=== PATIENT | male | born 1960 | race Caucasian/White ===

== ENCOUNTER → 2017-04-06 | Outpatient (CLI) | payer MEDICARE | END | disposition home or self-care (01) | LOC: LABWHC1 09:26 | PROVIDERS: ATTEND Urology | DX: E29.1 Testicular hypofunction (principal) | CPT/HCPCS: 36415; 84403 ==

== ENCOUNTER → 2018-08-08 | Outpatient (CLI) | payer MEDICARE | END | disposition home or self-care (01) | LOC: LABWHC1 09:05 | PROVIDERS: ATTEND Internal Medicine Cardiovascular Disease | DX: E11.9 Type 2 diabetes mellitus without complications (principal) | CPT/HCPCS: 36415; 83704 ==

== ENCOUNTER → 2019-02-01 | Outpatient (CLI) | payer MEDICARE | END | disposition home or self-care (01) | LOC: LABWHC1 08:23 | PROVIDERS: ATTEND Internal Medicine Cardiovascular Disease | DX: E78.2 Mixed hyperlipidemia (principal); E11.9 Type 2 diabetes mellitus without complications; I10 Essential (primary) hypertension; R07.9 Chest pain, unspecified | CPT/HCPCS: 36415; 83704 ==

== ENCOUNTER 2019-06-30 15:31 | Emergency (ER) | payer MEDICARE ==
[2019-06-30 15:36] VITALS: TEMP 97.5
[2019-06-30] MEDS ORDERED: HYDROmorphone 1 MG/ML 1 ML SYRINGE IVP STA (16:03)
[2019-06-30] MEDS ORDERED: SODIUM CHLORIDE 0.9% 1,000 ML IV STA ×2 (16:03)
[2019-06-30] MEDS ORDERED: ONDANSETRON 4 MG/2 ML VIAL IVP STA (16:03)
--- NOTE | 2019-06-30 16:09 | ED ---
General Adult HPI - General Chief complaint: Abdominal Pain Stated complaint: Abd pain, vomiting Time Seen by Provider: 06/30/19 15:56 Source: patient, family, RN notes reviewed Mode of arrival: ambulatory Limitations: no limitations - History of Present Illness Initial comments: Chief complaint history of present illness this is a 58-year-old male with acute abdominal pain. The patient reports he did have a small bowel movement 2 hours ago. While getting ready for family function started having moderately severe mid abdominal pain. Past history includes having a ruptured intestine subsequent colostomy and reversal of colostomy. The patient has noted several boulders and abdomen diagnoses hernias. He had nausea vomiting this morning. Patient presents with extremely uncomfortable. IV was started fluids to be administered pain medication and labs drawn - Related Data Home Medications Medication Instructions Recorded Confirmed Aspirin EC [Ecotrin Low Dose] 81 mg PO DAILY 06/30/19 06/30/19 Atorvastatin [Lipitor] 80 mg PO HS 06/30/19 06/30/19 Gabapentin [Neurontin] 600 mg PO TID 06/30/19 06/30/19 Gemfibrozil [Lopid] 600 mg PO BID 06/30/19 06/30/19 Hydrocodone/Acetaminophen [[place] 1 tab PO Q8H PRN 06/30/19 06/30/19 7.5-325] Lisinopril [Zestril] 5 mg PO DAILY 06/30/19 06/30/19 Tamsulosin HCl [Flomax] 0.4 mg PO HS 06/30/19 06/30/19 metFORMIN HCL 1,000 mg PO BID 06/30/19 06/30/19 rOPINIRole HCL 0.5 mg PO HS 06/30/19 06/30/19 Allergies Allergy/AdvReac Type Severity Reaction Status Date / Time latex Allergy Rash/Hives Verified 06/30/19 16:47 sulfamethoxazole AdvReac Itching Verified 06/30/19 16:44 [From Bactrim] trimethoprim [From Bactrim] AdvReac Itching Verified 06/30/19 16:44 Review of Systems ROS Statement: Those systems with pertinent positive or pertinent negative responses have been documented in the HPI. Review of systems patient denies headache or visual acuity changes no chest pain or shortness of breath. He has abdominal pain point severe just above the umbilicus as area of discomfort. The pain and to come and go become diaphoretic at those times. No flank pain. No difficulty urinating. All systems reviewed. Past medical problems significant for non-insulin diabetes mellitus, hyperlipidemia and hypertension. The patient's surgeries include thoracic surge ry on his back as well as colon surgery for ruptured intestine. He reports he had surgery resulting in a colostomy for 7 or 8 months for is reduced. Post multiple years ago. Family history significant for father having lung cancer in mother and breast cancer. The patient smokes marijuana denies alcohol use. He has ALLERGIES to Bactrim. ROS Other: All systems not noted in ROS Statement are negative. Past Medical History Past Medical History: Diabetes Mellitus, Hyperlipidemia, Hypertension History of Any Multi-Drug Resistant Organisms: None Reported Past Surgical History: Back Surgery Additional Past Surgical History / Comment(s): colon surgery Past Psychological History: No Psychological Hx Reported Smoking Status: Never smoker Past Alcohol Use History: None Reported Past Drug Use History: Marijuana General Exam - General Exam Comments Initial Comments: General: The patient is awake and alert, moderate abdominal pain, distress. Nausea vomiting no diarrhea. Diaphoretic initially. Vital signs temp 97.5 pulse 82 respiratory rate 18 pulse ox 90% room air blood pressure 132/78 Eye: , extra-ocular movements are intact; there is normal conjunctiva bilaterally. No signs of icterus. Ears, nose, mouth and throat: There are moist mucous membranes Neck: The neck is supple, Cardiovascular: There is a regular rate and rhythm. No murmur, rub or gallop is appreciated. Respiratory: Lungs are clear to auscultation, respirations are non-labored, breath sounds are equal. No wheezes, stridor, rales, or rhonchi. Gastrointestinal: She complains of moderate to severe abdominal discomfort ongoing for several hours. Nausea vomiting on 2 occasions. Examination finds a large healed midline incision. Patient has a reducible right paramedian hernia another that's not a reducible to the left paramedian where he had his maximal pain. Active bowel sounds. Back: There is no tenderness to palpation in the midline. There is no obvious deformity. No rashes noted. Musculoskeletal: Normal ROM, no tenderness, There is no pedal edema. There is no calf tenderness or swelling. Sensation intact.. Neurological: No complaint of or evidence of any neuro deficits. Skin: Skin is warm and dry and no rashes or lesions are noted. Psychiatric: Cooperative, appropriate mood & affect, Limitations: no limitations Course Vital Signs 06/30/19 06/30/19 06/30/19 15:33 16:08 17:37 Temperature 97.5 F L Pulse Rate 82 80 87 Respiratory 18 18 16 Rate Blood Pressure 132/78 105/59 124/70 O2 Sat by Pulse 98 97 97 Oximetry Medical Decision Making - Medical Decision Making Medical decision making; this is a 58-year-old male with acute abdominal discomfort in the mid abdomen. The patient has had previous abdominal surgeries. Patient received IV fluids and pain medication. Labs show an elevated white count of 16.7 hemoglobin 17 hematocrit 51 with a potassium 4.5. BUN 15 creatinine 1.07 with a GFR 77. Urine is clean no signs of infection. The patient's blood glucose is 235. He is lactic acid is elevated at 2.9. Again the patient received IV fluids and pain medication. Patient's amylase is 117 lipase is 686. After abdominal examination with what may have been reducing of the to hernias the patient has an the abdomen patient states he feels slightly better. Patient reports he had go to the bathroom, he had a large loose stool states his abdomen is feeling significantly better. X-rays of the abdomen were done and reviewed by radiologist his findings are there is no sign of intestinal obstruction or pneumoperitoneum. Fecal pattern is normal. Lung bases are clear. There is no pathologic calcifications over the kidneys. There are spondylotic changes in the lumbar spine. There is thoracic spine fusion surgery. Impression; nonacute abdomen. As read by Dr. Jones The patient has had for 5 loose stools while here. States he feels much better. No abdominal pain no cramping. Appetite returned. We did discuss the findings of the CAT scan which showed multiple abdominal wall hernias with abdominal anterior wall hernias increase compared to old exam with some fat stranding and could relate to inflammatory changes in the omental fat within the hernias. There is also a left lateral abdominal wall hernia containing small bowel unchanged. No signs of obstruction. As read by Dr. Jones. The patient was given the option of staying in hospital, and being seen by a general surgeon. The patient wants to go home. He wants an appointment to follow-up with general surgery. Patient advised return emergency room if the pain returns. It was suggested the patient's stay in hospital but again he feels so good he wants to go home. His appetite is good. I did discuss the case with general surgeon Dr. Trevino. She to suggest the patient stable he will stay. He'll be advised to call follow-up with her as an outpatient. Again advised to return emergency room as needed. - Lab Data Result diagrams: 06/30/19 16:15 06/30/19 16:15 Lab Results 06/30/19 06/30/19 06/30/19 Range/Units 16:00 16:15 16:15 WBC 16.8 H (3.8-10.6) k/uL RBC 5.14 (4.30-5.90) m/uL Hgb 17.0 (13.0-17.5) gm/dL Hct 51.0 (39.0-53.0) % MCV 99.4 (80.0-100.0) fL MCH 33.1 (25.0-35.0) pg MCHC 33.4 (31.0-37.0) g/dL RDW 13.9 (11.5-15.5) % Plt Count 217 (150-450) k/uL Neutrophils % 86 % Lymphocytes % 8 % Monocytes % 5 % Eosinophils % 1 % Basophils % 0 % Neutrophils # 14.4 H (1.3-7.7) k/uL Lymphocytes # 1.4 (1.0-4.8) k/uL Monocytes # 0.8 (0-1.0) k/uL Eosinophils # 0.2 (0-0.7) k/uL Basophils # 0.0 (0-0.2) k/uL Sodium 141 (137-145) mmol/L Potassium 4.5 (3.5-5.1) mmol/L Chloride 105 (98-107) mmol/L Carbon Dioxide 16 L (22-30) mmol/L Anion Gap 20 mmol/L BUN 15 (9-20) mg/dL Creatinine 1.07 (0.66-1.25) mg/dL Est GFR (CKD-EPI)AfAm 89 (>60 ml/min/1.73 sqM) Est GFR (CKD-EPI)NonAf 77 (>60 ml/min/1.73 sqM) Glucose 223 H (74-99) mg/dL Plasma Lactic Acid Joby (0.7-2.0) mmol/L Calcium 10.5 H (8.4-10.2) mg/dL Total Bilirubin 0.8 (0.2-1.3) mg/dL AST 22 (17-59) U/L ALT 25 (21-72) U/L Alkaline Phosphatase 103 (38-126) U/L Total Protein 8.1 (6.3-8.2) g/dL Albumin 5.3 H (3.5-5.0) g/dL Amylase 117 H (30-110) U/L Lipase 686 H (23-300) U/L Urine Color Light Yellow Urine Appearance Clear (Clear) Urine pH 5.0 (5.0-8.0) Ur Specific [place] 1.028 (1.001-1.035) Urine Protein Negative (Negative) Urine Glucose (UA) 4+ H (Negative) Urine Ketones Negative (Negative) Urine Blood Negative (Negative) Urine Nitrite Negative (Negative) Urine Bilirubin Negative (Negative) Urine Urobilinogen <2.0 (<2.0) mg/dL Ur Leukocyte Esterase Negative (Negative) 06/30/19 Range/Units 16:15 WBC (3.8-10.6) k/uL RBC (4.30-5.90) m/uL Hgb (13.0-17.5) gm/dL Hct (39.0-53.0) % MCV (80.0-100.0) fL MCH (25.0-35.0) pg MCHC (31.0-37.0) g/dL RDW (11.5-15.5) % Plt Count (150-450) k/uL Neutrophils % % Lymphocytes % % Monocytes % % Eosinophils % % Basophils % % Neutrophils # (1.3-7.7) k/uL Lymphocytes # (1.0-4.8) k/uL Monocytes # (0-1.0) k/uL Eosinophils # (0-0.7) k/uL Basophils # (0-0.2) k/uL Sodium (137-145) mmol/L Potassium (3.5-5.1) mmol/L Chloride (98-107) mmol/L Carbon Dioxide (22-30) mmol/L Anion Gap mmol/L BUN (9-20) mg/dL Creatinine (0.66-1.25) mg/dL Est GFR (CKD-EPI)AfAm (>60 ml/min/1.73 sqM) Est GFR (CKD-EPI)NonAf (>60 ml/min/1.73 sqM) Glucose (74-99) mg/dL Plasma Lactic Acid Joby 2.9 H* (0.7-2.0) mmol/L Calcium (8.4-10.2) mg/dL Total Bilirubin (0.2-1.3) mg/dL AST (17-59) U/L ALT (21-72) U/L Alkaline Phosphatase (38-126) U/L Total Protein (6.3-8.2) g/dL Albumin (3.5-5.0) g/dL Amylase (30-110) U/L Lipase (23-300) U/L Urine Color Urine Appearance (Clear) Urine pH (5.0-8.0) Ur Specific [place] (1.001-1.035) Urine Protein (Negative) Urine Glucose (UA) (Negative) Urine Ketones (Negative) Urine Blood (Negative) Urine Nitrite (Negative) Urine Bilirubin (Negative) Urine Urobilinogen (<2.0) mg/dL Ur Leukocyte Esterase (Negative) Disposition Clinical Impression: Abdominal pain, Ventral incisional hernia Disposition: HOME SELF-CARE Condition: Fair Instructions (If sedation given, give patient instructions): Ventral Hernia (ED) Additional Instructions: Increase fluid intake, eat properly. Follow-up family physician and general surgeon on-call Dr. Trevino Is patient prescribed a controlled substance at d/c from ED?: No Referrals: Lynn Wheat MD [Primary Care Provider] - 1-2 days Danielle Carias MD [STAFF PHYSICIAN] - 1-2 days Time of Disposition: 19:43
[2019-06-30 16:19] LABS: Appearance,Urine Clear (Clear); Bilirubin,Urine Negative (Negative); Blood,Urine Negative (Negative); Color,Urine Light Yellow; Glucose,Urine (UA) 4+ (Negative); Ketones,Urine Negative (Negative); Leukocyte Esterase,Urine Negative (Negative); Nitrite,Urine Negative (Negative); Protein,Urine Negative (Negative); Specific Gravity,Urine 1.028 (1.001-1.035); Urobilinogen,Urine <2.0 mg/dL (<2.0)
[2019-06-30 16:24] LABS: Basophils % (A) 0 %; Eosinophils # (A) 0.2 k/uL (0-0.7); Eosinophils % (A) 1 %; Lymphocytes # (A) 1.4 k/uL (1.0-4.8); Lymphocytes % (A) 8 %; MCH 33.1 pg (25.0-35.0); MCHC 33.4 g/dL (31.0-37.0); MCV 99.4 fL (80.0-100.0); Mean Platelet Volume 7.9; Monocytes # (A) 0.8 k/uL (0-1.0); Monocytes % (A) 5 %; Neutrophils # (A) 14.4 k/uL (1.3-7.7); Neutrophils % (A) 86 %; Platelet Count 217 k/uL (150-450); RBC 5.14 m/uL (4.30-5.90); RDW 13.9 % (11.5-15.5); WBC 16.8 k/uL (3.8-10.6)
[2019-06-30 16:38] LABS: Albumin 5.3 g/dL (3.5-5.0); Calcium 10.5 mg/dL (8.4-10.2); Potassium 4.5 mmol/L (3.5-5.1); Total Bilirubin 0.8 mg/dL (0.2-1.3); Total Protein 8.1 g/dL (6.3-8.2)
--- NOTE | 2019-06-30 16:40 | XR ---
EXAMINATION TYPE: XR abdomen 2V DATE OF EXAM: 06/30/2019 COMPARISON: NONE HISTORY: Abdominal pain TECHNIQUE: Supine and upright FINDINGS: There is no sign of intestinal obstruction or pneumoperitoneum. Fecal pattern is normal. Laverne ng bases are clear. There are no pathologic calcifications over the kidneys. There are spondylotic ch anges in the lumbar spine. There is thoracic spine fusion surgery. IMPRESSION: Nonacute abdomen.
[2019-06-30] MEDS ORDERED: IOPAMIDOL CONTRAST (ORAL USE) VIAL PO PRN (16:55)
[2019-06-30 17:38] VITALS: BP 124/70; PULSE 87; RESP 16
--- NOTE | 2019-06-30 18:55 | CT ---
EXAMINATION TYPE: CT abdomen pelvis w con DATE OF EXAM: 06/30/2019 COMPARISON: 07/06/2015 HISTORY: Abdominal pain CT DLP: mGycm Automated exposure control for dose reduction was used. TECHNIQUE: Helical acquisition of images was performed from the lung bases through the pelvis. CONTRAST: The contrast was Isovue 100 mL. FINDINGS: Lung bases are clear. There is no pleural effusion. Heart size is normal. Stomach appears normal. Jacquie er spleen pancreas gallbladder appear normal. Bile ducts are not dilated. There is multicentric ventral hernia that contains omental fat. There is no adrenal mass. Kidneys purnima w satisfactory contrast opacification. There is no hydronephrosis. Ureters are not dilated. There is no retroperitoneal adenopathy. Bladder distends smoothly. There is no inguinal hernia. There are numerous sigmoid diverticula. There is no sign of diverticulitis. Appendix is not seen. There is no sign of thickened appendix. There is multilevel spondylotic changes in the lumbar spine. There is no bony destructive process. There is s ome thoracolumbar spine fusion surgery. I see no focal bone destruction. There is a large left lateral lower abdominal wall ventral hernia contains multiple loops of small mey wel. There is no sign of a bowel obstruction. There is normal oral contrast opacification of the smal l bowel. There is no mesenteric edema. There is no ascites or free air. IMPRESSION: MULTIPLE ABDOMINAL WALL HERNIAS. ANTERIOR ABDOMINAL WALL HERNIAS ARE INCREASED COMPARED TO OLD EXAM W ITH SOME FAT STRANDING AND COULD RELATE TO INFLAMMATORY CHANGES IN THE OMENTAL FAT WITHIN THE HERNIAS . THERE IS A LEFT LATERAL ABDOMINAL WALL HERNIA CONTAINING SMALL BOWEL UNCHANGED.
== END 2019-06-30 19:59 | disposition home or self-care (01) ==
LOC: EC 15:31
DX: K43.2 Incisional hernia without obstruction or gangrene (principal); D72.829 Elevated white blood cell count, unspecified; R74.0 Nonspecific elevation of levels of transaminase and lactic acid dehydrogenase [LDH]; E11.9 Type 2 diabetes mellitus without complications; E78.5 Hyperlipidemia, unspecified; I10 Essential (primary) hypertension; Z88.2 Allergy status to sulfonamides; Z91.040 Latex allergy status; Z79.82 Long term (current) use of aspirin; Z79.84 Long term (current) use of oral hypoglycemic drugs; Z79.899 Other long term (current) drug therapy; Z87.19 Personal history of other diseases of the digestive system; Z98.890 Other specified postprocedural states; Z98.1 Arthrodesis status
CPT/HCPCS: 36415; 80053; 82150; 83605; 83690; 85025; 81003; 87086; 74019; 74177; 99284; 96374; 96375; 96361 ×4; J2405; J1170; Q9967; 93005

== ENCOUNTER → 2021-09-07 | Outpatient (CLI) | payer MEDICARE | END | disposition home or self-care (01) | LOC: LABWHC1 10:52 | PROVIDERS: ATTEND Urology | DX: N40.1 Benign prostatic hyperplasia with lower urinary tract symptoms (principal) | CPT/HCPCS: 36415; 84153 ==

== ENCOUNTER 2024-01-18 15:26 | Inpatient (IN) | payer MEDICARE ==
--- NOTE | 2024-01-18 17:06 | ED ---
Lower Extremity Injury HPI - General Chief Complaint: Extremity Injury, Lower Stated Complaint: right foot injury- hole on bottom of foot Time Seen by Provider: 01/18/24 16:37 Source: patient Mode of arrival: ambulatory Limitations: no limitations - History of Present Illness Initial Comments: 63-year-old male sent in by PCP for osteomyelitis of the right foot. Patient has had a chronic ulceration to the plantar surface for over 4 weeks. He states that this has been draining foul-smelling discharge. He has history of diabetes he has had neuropathy. No fevers. He admits to significant pain. - Related Data Home Medications Medication Instructions Recorded Confirmed Gabapentin [Neurontin] 600 mg PO TID@0800,1700,2200 06/30/19 01/18/24 Hydrocodone/Acetaminophen [[place] 1 tab PO Q8H PRN 06/30/19 01/18/24 7.5-325] Tamsulosin HCl [Flomax] 0.4 mg PO BID@0800,1700 06/30/19 01/18/24 lisinopriL [Zestril] 5 mg PO DAILY@0800 06/30/19 01/18/24 metFORMIN HCL [Glucophage] 1,000 mg PO BID-W/MEALS@06/30/19 01/18/24 Atorvastatin [Lipitor] 40 mg PO HS@219901/18/24 01/18/24 Erythromycin Ophth Oint [Romycin 1 applic BOTH EYES DIRECTED 01/18/24 01/18/24 Ophth Oint] Finasteride [Proscar] 5 mg PO DAILY@0800 01/18/24 01/18/24 Furosemide [Lasix] 20 mg PO DAILY@0800 01/18/24 01/18/24 Insulin Aspart Prot/Insuln Asp 54 unit SQ DIRECTED 01/18/24 01/18/24 [NovoLOG MIX 70-30 Flexpen] Liraglutide [Victoza 3-Narendra] 1.8 mg SQ DIRECTED 01/18/24 01/18/24 oxyBUTYnin chloride [Ditropan] 5 mg PO BID@0800,1700 01/18/24 01/18/24 rOPINIRole HCL [Requip] 3 mg PO HS@2200 01/18/24 01/18/24 Allergies Allergy/AdvReac Type Severity Reaction Status Date / Time latex Allergy Rash/Hives Verified 01/18/24 19:42 sulfamethoxazole Allergy Rash and Verified 01/18/24 19:42 [From Bactrim] Hives trimethoprim [From Bactrim] Allergy Rash and Verified 01/18/24 19:42 Hives Review of Systems ROS Statement: Those systems with pertinent positive or pertinent negative responses have been documented in the HPI. ROS Other: All systems not noted in ROS Statement are negative. Past Medical History Past Medical History: Diabetes Mellitus, Hyperlipidemia, Hypertension History of Any Multi-Drug Resistant Organisms: None Reported Past Surgical History: Back Surgery Additional Past Surgical History / Comment(s): colon surgery Past Psychological History: No Psychological Hx Reported Past Alcohol Use History: None Reported Past Drug Use History: Marijuana General Exam Limitations: no limitations General appearance: alert, in no apparent distress Head exam: Present: atraumatic, normocephalic Eye exam: Present: normal appearance Neck exam: Present: normal inspection Respiratory exam: Absent: respiratory distress Cardiovascular Exam: Present: regular rate Right Foot/Toe exam: Present: tenderness, swelling, erythema. Absent: normal inspection Neurological exam: Present: alert, oriented X3 Psychiatric exam: Present: normal affect, normal mood Course Vital Signs 01/18/24 01/18/24 15:49 22:04 Temperature 99 F 99.7 F H Pulse Rate 48 L 122 H Respiratory 20 20 Rate Blood Pressure 110/66 129/74 O2 Sat by Pulse 99 96 Oximetry Medical Decision Making - Medical Decision Making Was pt. sent in by a medical professional or institution (Dr. PA, VETERINARY PRACTICE MANAGER, urgent care, hospital, or half-way...) When possible be specific @ -Sent by PCP Did you speak to anyone other than the patient for history (EMS, parent, family, police, friend...)? What history was obtained from this source @ -No Did you review nursing and triage notes (agree or disagree)? Why? @ -I reviewed and agree with nursing and triage notes Were old charts reviewed (outside hosp., previous admission, EMS record, old EKG, old radiological studies, urgent care reports/EKG's, half-way records)? Report findings @ -No old charts were reviewed Differential Diagnosis (chest pain, altered mental status, abdominal pain women, abdominal pain men, vaginal bleeding, weakness, fever, dyspnea, syncope, headache, dizziness, GI bleed, back pain, seizure, CVA, palpatations, mental health, musculoskeletal)? @ -Differential Musculoskeletal Muscular strain, contusion, ligament sprain, fracture, arthritis, septic arthritis, bursitis, cellulitis, muscle spasm, nerve compression, DVT, arterial occlusion, herpes zoster, electrolyte abnormality, tumor.... This is not meant to be in all inclusive list EKG interpreted by me (3pts min.). @ -As above X-rays interpreted by me (1pt min.). @ -X-ray shows no suspicious changes to suggest osteomyelitis. Wound at the ball of the foot plantar aspect. No acute osseous abnormality. Diffuse soft tissue swelling. CT interpreted by me (1pt min.). @ -None done U/S interpreted by me (1pt. min.). @ -None done What testing was considered but not performed or refused? (CT, X-rays, U/S, labs)? Why? @ -None What meds were considered but not given or refused? Why? @ -None Did you discuss the management of the patient with other professionals (professionals i.e. , PA, VETERINARY PRACTICE MANAGER, lab, RT, psych nurse, social media developer, driver medic, teacher, humane officer, family preservation caseworker)? Give summary @ -I spoke with Dr. Hicks who accepted admission Was smoking cessation discussed for >3mins.? @ -No Was critical care preformed (if so, how long)? @ -No Were there social determinants of health that impacted care today? How? (Homelessness, low income, unemployed, alcoholism, drug addiction, transportation, low edu. Level, literacy, decrease access to med. care, detention, rehab)? @ -No Was there de-escalation of care discussed even if they declined (Discuss DNR or withdrawal of care, Hospice)? DNR status @ -No What co-morbidities impacted this encounter? (DM, HTN, Smoking, COPD, CAD, Cancer, CVA, ARF, Chemo, Hep., AIDS, mental health diagnosis, sleep apnea, morbid obesity)? @ -Diabetes Was patient admitted / discharged? Hospital course, mention meds given and route, prescriptions, significant lab abnormalities, going to OR and other pertinent info. @ -63-year-old male sent in by his PCP for worsening chronic wounds to the right foot. On physical exam there is a quarter sized erythematous and purulent ulceration to the foot. Wound culture is obtained. X-ray shows no signs of osteomyelitis. WBC 13.4. Lactic acid 2.2. CRP 24.4. Patient will be admitted for IV antibiotics and evaluation by infectious disease and vascular surgery. He is agreeable with this plan. I discussed this case with my attending Dr. Shepherd Undiagnosed new problem with uncertain prognosis? @ -No Drug Therapy requiring intensive monitoring for toxicity (Heparin, Nitro, Insulin, Cardizem)? @ -No Were any procedures done? @ -No Diagnosis/symptom? @ -Diabetic foot infection, cellulitis Acute, or Chronic, or Acute on Chronic? @ -Acute Uncomplicated (without systemic symptoms) or Complicated (systemic symptoms)? @ -Complicated Side effects of treatment? @ -No Exacerbation, Progression, or Severe Exacerbation? @ -No Poses a threat to life or bodily function? How? (Chest pain, [place], [place], pneumonia, PE, COPD, DKA, ARF, appy, cholecystitis, CVA, Diverticulitis, Homicidal, Suicidal, threat to staff... and all critical care pts) @ -Yes - Lab Data Result diagrams: 01/18/24 17:45 01/18/24 17:45 Lab Results 01/18/24 01/18/24 01/18/24 Range/Units 17:45 17:45 17:45 WBC 13.4 H (3.8-10.6) k/uL RBC 3.83 L (4.30-5.90) m/uL Hgb 11.0 L (13.0-17.5) gm/dL Hct 33.3 L (39.0-53.0) % MCV 87.1 (80.0-100.0) fL MCH 28.8 (25.0-35.0) pg MCHC 33.0 (31.0-37.0) g/dL RDW 15.8 H (11.5-15.5) % Plt Count 400 (150-450) k/uL MPV 7.5 Neutrophils % 83 % Lymphocytes % 9 % Monocytes % 6 % Eosinophils % 0 % Basophils % 0 % Neutrophils # 11.2 H (1.3-7.7) k/uL Lymphocytes # 1.2 (1.0-4.8) k/uL Monocytes # 0.8 (0-1.0) k/uL Eosinophils # 0.1 (0-0.7) k/uL Basophils # 0.0 (0-0.2) k/uL Sodium 133 L (137-145) mmol/L Potassium 4.0 (3.5-5.1) mmol/L Chloride 100 (98-107) mmol/L Carbon Dioxide 23 (22-30) mmol/L Anion Gap 10 mmol/L BUN 13 (9-20) mg/dL Creatinine 0.90 (0.66-1.25) mg/dL Est GFR (CKD-EPI)AfAm >90 (>60 ml/min/1.73 sqM) Est GFR (CKD-EPI)NonAf >90 (>60 ml/min/1.73 sqM) Glucose 99 (74-99) mg/dL Plasma Lactic Acid Joby 2.2 H* (0.7-2.0) mmol/L Calcium 8.2 L (8.4-10.2) mg/dL Total Bilirubin 0.5 (0.2-1.3) mg/dL AST 23 (17-59) U/L ALT 28 (4-49) U/L Alkaline Phosphatase 155 H (38-126) U/L C-Reactive Protein (<1.0) mg/dL Total Protein 6.1 L (6.3-8.2) g/dL Albumin 3.0 L (3.5-5.0) g/dL 01/18/24 Range/Units 17:45 WBC (3.8-10.6) k/uL RBC (4.30-5.90) m/uL Hgb (13.0-17.5) gm/dL Hct (39.0-53.0) % MCV (80.0-100.0) fL MCH (25.0-35.0) pg MCHC (31.0-37.0) g/dL RDW (11.5-15.5) % Plt Count (150-450) k/uL MPV Neutrophils % % Lymphocytes % % Monocytes % % Eosinophils % % Basophils % % Neutrophils # (1.3-7.7) k/uL Lymphocytes # (1.0-4.8) k/uL Monocytes # (0-1.0) k/uL Eosinophils # (0-0.7) k/uL Basophils # (0-0.2) k/uL Sodium (137-145) mmol/L Potassium (3.5-5.1) mmol/L Chloride (98-107) mmol/L Carbon Dioxide (22-30) mmol/L Anion Gap mmol/L BUN (9-20) mg/dL Creatinine (0.66-1.25) mg/dL Est GFR (CKD-EPI)AfAm (>60 ml/min/1.73 sqM) Est GFR (CKD-EPI)NonAf (>60 ml/min/1.73 sqM) Glucose (74-99) mg/dL Plasma Lactic Acid Joby (0.7-2.0) mmol/L Calcium (8.4-10.2) mg/dL Total Bilirubin (0.2-1.3) mg/dL AST (17-59) U/L ALT (4-49) U/L Alkaline Phosphatase (38-126) U/L C-Reactive Protein 24.4 H (<1.0) mg/dL Total Protein (6.3-8.2) g/dL Albumin (3.5-5.0) g/dL Disposition Clinical Impression: Cellulitis, Diabetic foot infection Disposition: ADMITTED IP TO THIS HOSP Condition: Serious Time of Disposition: 18:21
--- NOTE | 2024-01-18 17:41 | XR ---
EXAMINATION TYPE: XR foot complete RT DATE OF EXAM: 01/18/2024 COMPARISON: None HISTORY: Chronic ulceration bottom right foot TECHNIQUE: 3 view right foot FINDINGS: hallux valgus deformity is evident. No acute fracture or dislocations are evident. Joint sp aces are served. Plantar and Achilles tendon calcaneal heel spurs are present. There appears to be a wound at the ball of foot. No suspicious cortical erosions to suggest underlying osteomyelitis is jaswinder ntified. There is diffuse soft tissue swelling over the dorsum of the foot. Follow up exams can be performed 7-10 days acute trauma for continued pain. IMPRESSION: 1. No suspicious changes to suggest osteomyelitis. 2. Wound at the ball of the foot plantar aspect. 3. No acute osseous abnormality. 4. Diffuse soft tissue swelling
[2024-01-18] MEDS ORDERED: VANCOMYCIN IV PER PHARMACY 1 EACH MISC MISCELLANE PRN (17:49)
[2024-01-18 18:12] LABS: Basophils % (A) 0 %; Eosinophils # (A) 0.1 k/uL (0-0.7); Eosinophils % (A) 0 %; HCT 33.3 % (39.0-53.0); Lymphocytes # (A) 1.2 k/uL (1.0-4.8); Lymphocytes % (A) 9 %; MCH 28.8 pg (25.0-35.0); MCV 87.1 fL (80.0-100.0); Mean Platelet Volume 7.5; Monocytes # (A) 0.8 k/uL (0-1.0); Monocytes % (A) 6 %; Neutrophils # (A) 11.2 k/uL (1.3-7.7); Neutrophils % (A) 83 %; Platelet Count 400 k/uL (150-450); RBC 3.83 m/uL (4.30-5.90); RDW 15.8 % (11.5-15.5); WBC 13.4 k/uL (3.8-10.6)
[2024-01-18] MEDS ORDERED: ACETAMINOPHEN TAB 325 MG TAB PO PRN (18:18)
[2024-01-18] MEDS ORDERED: NALOXONE 0.4 MG/ML 1 ML VIAL IV PRN (18:18)
[2024-01-18] MEDS: SODIUM CHLORIDE 0.9% 1,000 ML IV ONE (18:23)
[2024-01-18] MEDS: PIPERACILLIN-TAZOBACTAM 3.375 GM in SODIUM CHLORIDE 0.9% 100 ML IVPB STA (18:24)
[2024-01-18] MEDS: HYDROmorphone 0.5 MG/0.5 ML SYRINGE IVP STA (18:24)
[2024-01-18 19:24] LABS: ALT 28 U/L (4-49); AST 23 U/L (17-59); African American GFR (CKD) >90 (>60 ml/min/1.73 sqM); Alkaline Phosphatase 155 U/L (38-126); Anion Gap 10 mmol/L; Blood Urea Nitrogen 13 mg/dL (9-20); Calcium 8.2 mg/dL (8.4-10.2); Carbon Dioxide 23 mmol/L (22-30); Chloride 100 mmol/L (98-107); Glucose 99 mg/dL (74-99); Non-African American GFR(CKD) >90 (>60 ml/min/1.73 sqM); Sodium 133 mmol/L (137-145); Total Bilirubin 0.5 mg/dL (0.2-1.3); Total Protein 6.1 g/dL (6.3-8.2)
[2024-01-18] MEDS: VANCOMYCIN 1,750 MG in SODIUM CHLORIDE 0.9% 500 ML 500 ML IVPB STA (20:35)
[2024-01-18] MEDS: SODIUM CHLORIDE 0.9% 1,000 ML IV SCH (22:07)
[2024-01-18] MEDS: INSULIN ASPART (NovoLOG) 100 UNIT/ML VIAL SQ ONE (22:36)
[2024-01-18 22:46] LABS: Glucose,Whole Blood 125 mg/dL (70-110)
[2024-01-18] MEDS: GABAPENTIN 300 MG CAP PO SCH (23:58)
[2024-01-18] MEDS: ATORVASTATIN 40 MG TAB PO SCH (23:58)
[2024-01-19] MEDS: ERYTHROMYCIN 5 MG/GM OPHTH OINT 1 GM TUBE BOTH EYES SCH (00:02)
[2024-01-19] MEDS: HYDROmorphone 1 MG/ML 1 ML SYRINGE IVP PRN (00:30)
--- NOTE | 2024-01-19 05:43 | P.HPIM ---
History of Present Illness H&P Date: 01/18/24 Chief Complaint: Diabetic foot, nonhealing ulcer of the right foot, severe h ypoglycemic type HISTORY OF PRESENT ILLNESS: 63-year-old male 89 office patient with past medical history of type 2 diabetes, Chronic edema, hyperlipidemia, BPH, chronic pain syndrome, chronic neuropathy and recurrent pressure ulcer both feet worse on the right on the left side which patient apparently had for the last 2 to 3 weeks he missed few appointment in the office last few months patient presented to the office today with concern about nonhealing ulcer in the base of the first and second toe involving the lower area with significant drainage and harsh callus with an open significant smelly drain. Checking on it in the office felt the area might be involving the bone and might have osteomyelitis the smell significant similar to what we see with Pseudomonas. Patient was sent to the emergency department to be study x-ray of the foot initially showed no suspicious changes suggestive of osteomyelitis but wound at all ball of the foot plantar aspect with diffuse soft tissue swelling. Laboratory value with white blood cell 13,400 hemoglobin 11 hematocrit 33 mostly neutrophil differential. Electrolytes showed hyponatremia with sodium at 133 significant abnormal liver function test, C-reactive protein was 24.4 with lactic acid 2.2 and calcium 8.2 with creatinine at 0.9. Slight reactive alkaline phosphatase at 155. With the severity of his symptoms was started on vancomycin along with Zosyn will continue Vanco dosed by pharmacy admit patient to the hospital to be seen by infectious disease and probably vascular. Culture of the probe on the blood close normal also defibrillator was done and to follow in the next few days. REVIEW OF SYSTEMS: CONSTITUTIONAL: Well-developed no acute respiratory distress. EYES: No icterus sclerae, no conjunctivitis. EARS, NOSE, MOUTH, THROAT, and FACE: No sore throat, lymphadenopathy, carotid bruits or deformity. RESPIRATORY: No SOB cough or wheezes. CARDIOVASCULAR: But positive Palpitation, PND, Orthopnea, no angina. GASTROINTESTINAL: No Abd pain, Nausea or vomiting, no Diarrhea or constipation, No GI Bleed, no distention or masses. GENITOURINARY: Negative for Hematuria or UTI, no kidney stones. Decreased urine output. INTEGUMENT/BREAST: Negative for any muscular injury with mild osteoarthritis.. HEMATOLOGIC/LYMPHATIC: Negative for bleed or purpura. MUSCULOSKELTAL: Negative for Myalgia or arthralgia. Significant ulcerated area between first second and third toe involving the big bulk of the arch area NEURLOGICAL: No LOC, Sz or syncope, blurred vision dizziness or abnormality.. BEHAVIORAL/PSYCH: Negative. ENDOCRINE: Negative. PHYSICAL EXAMINATION: General Appearance: Alert, cooperative, no distress, slightly overweight and looks older than his age. Neck HEENT: Supple, no lymphadenopathy, no thyroid enlargement, no carotid bruits. Lungs: Decreased expansion with inspiration positive for rhonchi no crackles. Chest Wall: Decreased expansion with deep inspiration no tenderness and no deformity was found on exam, no costochondral pain or discomfort. Heart: Regular rate and rhythm, S1, S2 normal, no murmur, rub or gallop. Back: Symmetric, no curvature, ROM normal, no CVA tenderness. Abdomen: Soft, non-tender, bowel sounds active all four quadrants, no masses, no organomegaly. Extremities: Extremities normal, atraumatic, no cyanosis positive significant edema, right foot and open ulcer area started from in between first and second toe and spread to bottom part of his foot involving deeper area with significant drainage decreased pulse and dorsalis pedis posterior tibial. Pulses: 2+ and symmetric. Skin: Skin color, texture, tugor normal, no rashes or lesions. Neurologic: Alert oriented x3 cranial nerves II through XII intact, no motor deficit, no abnormal balance or gait. ASSESSMENT AND PLAN: _Diabetic foot: The patient's current complaint patient was started on vancom ycin and Zosyn until cultures done will consult infectious disease and vascular. _Severe cellulitis of the foot without sepsis: Will continue current antibiotic watch for any progression might require to have different CAT scan to check for pulmonary embolism. _Type 2 diabetes: Has been on Victoza 1.8 mg subcutaneous daily along with metformin 1000 g twice a day, continuing better control of his blood sugar to prevent him from having further ulcer. _Hyperlipidemia: Continue atorvastatin 40 mg a day. _Chronic neuropathy, has been on gabapentin 600 mg 3 times a day. _Hypertension: Still on lisinopril 5 mg a day titrate dose higher and add calcium channel darlyn if needed. _Chronic edema: Remain on furosemide 20 mg daily. _Restless leg syndrome: Remain on ropinirole 3 mg at bedtime. _Chronic pain syndrome: Remain on hydrocodone 7.5 mg every 6-8 hours as needed. _GI prophylaxis: Continue Pepcid 20 mg daily. _DVT prophylaxis: Consider Lovenox 40 mg subcutaneous. CODE STATUS: Full code Admit patient to the inpatient service for more than 2 night stay. Past Medical History Past Medical History: Diabetes Mellitus, Hyperlipidemia, Hypertension History of Any Multi-Drug Resistant Organisms: None Reported Past Surgical History: Back Surgery Additional Past Surgical History / Comment(s): colon surgery Past Psychological History: No Psychological Hx Reported Past Alcohol Use History: None Reported Past Drug Use History: Marijuana Medications and Allergies Home Medications Medication Instructions Recorded Confirmed Type Gabapentin [Neurontin] 600 mg PO TID@0800,1700,2200 06/30/19 01/18/24 History Hydrocodone/Acetaminophen [[place] 1 tab PO Q8H PRN 06/30/19 01/18/24 History 7.5-325] Tamsulosin HCl [Flomax] 0.4 mg PO BID@0800,1700 06/30/19 01/18/24 History lisinopriL [Zestril] 5 mg PO DAILY@0800 06/30/19 01/18/24 History metFORMIN HCL [Glucophage] 1,000 mg PO BID-W/MEALS@06/30/19 01/18/24 History Atorvastatin [Lipitor] 40 mg PO HS@0 01/18/24 01/18/24 History Erythromycin Ophth Oint [Romycin 1 applic BOTH EYES DIRECTED 01/18/24 01/18/24 History Ophth Oint] Finasteride [Proscar] 5 mg PO DAILY@0800 01/18/24 01/18/24 History Furosemide [Lasix] 20 mg PO DAILY@0800 01/18/24 01/18/24 History Insulin Aspart Prot/Insuln Asp 54 unit SQ DIRECTED 01/18/24 01/18/24 History [NovoLOG MIX 70-30 Flexpen] Liraglutide [Victoza 3-Narendra] 1.8 mg SQ DIRECTED 01/18/24 01/18/24 History oxyBUTYnin chloride [Ditropan] 5 mg PO BID@0800,1700 01/18/24 01/18/24 History rOPINIRole HCL [Requip] 3 mg PO HS@2200 01/18/24 01/18/24 History Allergies Allergy/AdvReac Type Severity Reaction Status Date / Time latex Allergy Rash/Hives Verified 01/18/24 19:42 sulfamethoxazole Allergy Rash and Verified 01/18/24 19:42 [From Bactrim] Hives trimethoprim [From Bactrim] Allergy Rash and Verified 01/18/24 19:42 Hives Physical Exam Vitals: Vital Signs Temp Pulse Resp BP Pulse Ox 01/18/24 15:49 99 F 48 L 20 110/66 99 Intake and Output 01/18/24 01/18/24 01/18/24 06:59 14:59 22:59 Other: Weight 108.862 kg Results CBC & Chem 7: 01/18/24 17:45 01/18/24 17:45 Labs: Abnormal Lab Results - Last 24 Hours (Table) 01/18/24 01/18/24 01/18/24 Range/Units 17:45 17:45 17:45 WBC 13.4 H (3.8-10.6) k/uL RBC 3.83 L (4.30-5.90) m/uL Hgb 11.0 L (13.0-17.5) gm/dL Hct 33.3 L (39.0-53.0) % RDW 15.8 H (11.5-15.5) % Neutrophils # 11.2 H (1.3-7.7) k/uL Sodium 133 L (137-145) mmol/L Plasma Lactic Acid Joby 2.2 H* (0.7-2.0) mmol/L Calcium 8.2 L (8.4-10.2) mg/dL Alkaline Phosphatase 155 H (38-126) U/L C-Reactive Protein (<1.0) mg/dL Total Protein 6.1 L (6.3-8.2) g/dL Albumin 3.0 L (3.5-5.0) g/dL 01/18/24 Range/Units 17:45 WBC (3.8-10.6) k/uL RBC (4.30-5.90) m/uL Hgb (13.0-17.5) gm/dL Hct (39.0-53.0) % RDW (11.5-15.5) % Neutrophils # (1.3-7.7) k/uL Sodium (137-145) mmol/L Plasma Lactic Acid Joby (0.7-2.0) mmol/L Calcium (8.4-10.2) mg/dL Alkaline Phosphatase (38-126) U/L C-Reactive Protein 24.4 H (<1.0) mg/dL Total Protein (6.3-8.2) g/dL Albumin (3.5-5.0) g/dL
[2024-01-19 07:35] LABS: Glucose,Whole Blood 151 mg/dL (70-110)
[2024-01-19] MEDS: TAMSULOSIN 0.4 MG CAP.ER.24H PO SCH (09:24)
[2024-01-19] MEDS: FINASTERIDE 5 MG TAB PO SCH (09:24)
[2024-01-19] MEDS: HYDROcodone/APAP 5-325MG 1 EACH TAB PO PRN (09:24)
[2024-01-19] MEDS: FUROSEMIDE 20 MG TAB PO SCH (09:24)
[2024-01-19] MEDS: metFORMIN 500 MG TAB PO SCH (09:24)
[2024-01-19] MEDS: oxyBUTYnin chloride 5 MG TAB PO SCH (09:25)
[2024-01-19] MEDS: lisinopriL 5 MG TAB PO SCH (09:25)
[2024-01-19] MEDS: NON FORMULARY DRUG (Liraglutide [Victoza 3-Pak] 0.6 MG/0.1 ML Ml) SQ SCH (09:26)
[2024-01-19] MEDS: VANCOMYCIN 1,750 MG in SODIUM CHLORIDE 0.9% 500 ML 500 ML IVPB SCH (09:51)
--- NOTE | 2024-01-19 10:21 | P.GSCN ---
History of Present Illness Consult date: 01/19/24 Reason for Consult: Right foot wound Requesting physician: Ely Saez History of present illness: This is a pleasant 63-year-old male with a history of diabetes mellitus with peripheral neuropathy and a wound to his right foot and great toe that has been there for at least the last 2 months duration. He states it started out as a callus on the bottom of his foot. He states that he has been caring for the wou nd himself at home, he has not seen a physician for it. States it started swelling and getting red about 2 weeks ago. He denies any fevers or chills. States also started to have significant amount of drainage and foul odor. X-ray reports no osteomyelitis. He states he does not walk much due to pain in his left leg and prior back surgeries. He denies any shortness of breath, chest pain, abdominal pain, nausea or vomiting. Review of Systems A 14 point review systems was completed all pertinent positives and negatives as stated in the HPI. Past Medical History Past Medical History: Diabetes Mellitus, Hyperlipidemia, Hypertension History of Any Multi-Drug Resistant Organisms: None Reported Past Surgical History: Back Surgery Additional Past Surgical History / Comment(s): colon surgery Past Psychological History: No Psychological Hx Reported Past Alcohol Use History: None Reported Past Drug Use History: Marijuana Medications and Allergies Home Medications Medication Instructions Recorded Confirmed Type Gabapentin [Neurontin] 600 mg PO TID@0800,1700,2200 06/30/19 01/18/24 History Hydrocodone/Acetaminophen [[place] 1 tab PO Q8H PRN 06/30/19 01/18/24 History 7.5-325] Tamsulosin HCl [Flomax] 0.4 mg PO BID@0800,1700 06/30/19 01/18/24 History lisinopriL [Zestril] 5 mg PO DAILY@0800 06/30/19 01/18/24 History metFORMIN HCL [Glucophage] 1,000 mg PO BID-W/MEALS@,06/30/19 01/18/24 History Atorvastatin [Lipitor] 40 mg PO HS@2200 01/18/24 01/18/24 History Erythromycin Ophth Oint [Romycin 1 applic BOTH EYES DIRECTED 01/18/24 01/18/24 History Ophth Oint] Finasteride [Proscar] 5 mg PO DAILY@0800 01/18/24 01/18/24 History Furosemide [Lasix] 20 mg PO DAILY@0800 01/18/24 01/18/24 History Insulin Aspart Prot/Insuln Asp 54 unit SQ DIRECTED 01/18/24 01/18/24 History [NovoLOG MIX 70-30 Flexpen] Liraglutide [Victoza 3-Narendra] 1.8 mg SQ DIRECTED 01/18/24 01/18/24 History oxyBUTYnin chloride [Ditropan] 5 mg PO BID@0800,1700 01/18/24 01/18/24 History rOPINIRole HCL [Requip] 3 mg PO HS@2200 01/18/24 01/18/24 History Allergies Allergy/AdvReac Type Severity Reaction Status Date / Time latex Allergy Rash/Hives Verified 01/18/24 19:42 sulfamethoxazole Allergy Rash and Verified 01/18/24 19:42 [From Bactrim] Hives trimethoprim [From Bactrim] Allergy Rash and Verified 01/18/24 19:42 Hives Surgical - Exam Vital Signs Temp Pulse Resp BP Pulse Ox 99 F 48 L 20 110/66 99 01/18/24 15:49 01/18/24 15:49 01/18/24 15:49 01/18/24 15:49 01/18/24 15:49 General appearance: The patient is alert, oriented, appears in no acute distress. HET: Head is normocephalic and atraumatic. Pupils are equal and reactive. Neck: Supple. Heart: Regular. Lungs: Equal expansion, normal respiratory effort. Abdomen: Soft, nontender, nondistended. Extremities: Bilateral palpable DP pulses. Right foot and leg with erythema, swelling. There is a wound to the plantar aspect of the ball of foot and lateral aspect of great toe, wound with drainage and foul odor to the medial aspect of the great toe with significant swelling. Neurological: No focal deficits. Results - Labs 01/18/24 17:45 01/18/24 17:45 Abnormal Lab Results - Last 24 Hours (Table) 01/18/24 01/18/24 01/18/24 Range/Units 17:45 17:45 17:45 WBC 13.4 H (3.8-10.6) k/uL RBC 3.83 L (4.30-5.90) m/uL Hgb 11.0 L (13.0-17.5) gm/dL Hct 33.3 L (39.0-53.0) % RDW 15.8 H (11.5-15.5) % Neutrophils # 11.2 H (1.3-7.7) k/uL Sodium 133 L (137-145) mmol/L POC Glucose (mg/dL) (70-110) mg/dL Plasma Lactic Acid Joby 2.2 H* (0.7-2.0) mmol/L Calcium 8.2 L (8.4-10.2) mg/dL Alkaline Phosphatase 155 H (38-126) U/L C-Reactive Protein (<1.0) mg/dL Total Protein 6.1 L (6.3-8.2) g/dL Albumin 3.0 L (3.5-5.0) g/dL 01/18/24 01/18/24 Range/Units 17:45 22:34 WBC (3.8-10.6) k/uL RBC (4.30-5.90) m/uL Hgb (13.0-17.5) gm/dL Hct (39.0-53.0) % RDW (11.5-15.5) % Neutrophils # (1.3-7.7) k/uL Sodium (137-145) mmol/L POC Glucose (mg/dL) 125 H (70-110) mg/dL Plasma Lactic Acid Joby (0.7-2.0) mmol/L Calcium (8.4-10.2) mg/dL Alkaline Phosphatase (38-126) U/L C-Reactive Protein 24.4 H (<1.0) mg/dL Total Protein (6.3-8.2) g/dL Albumin (3.5-5.0) g/dL Diabetes panel 01/18/24 Range/Units 17:45 Sodium 133 L (137-145) mmol/L Potassium 4.0 (3.5-5.1) mmol/L Chloride 100 (98-107) mmol/L Carbon Dioxide 23 (22-30) mmol/L BUN 13 (9-20) mg/dL Creatinine 0.90 (0.66-1.25) mg/dL Glucose 99 (74-99) mg/dL Calcium 8.2 L (8.4-10.2) mg/dL AST 23 (17-59) U/L ALT 28 (4-49) U/L Alkaline Phosphatase 155 H (38-126) U/L Total Protein 6.1 L (6.3-8.2) g/dL Albumin 3.0 L (3.5-5.0) g/dL Calcium panel 01/18/24 Range/Units 17:45 Calcium 8.2 L (8.4-10.2) mg/dL Albumin 3.0 L (3.5-5.0) g/dL Pituitary panel 01/18/24 Range/Units 17:45 Sodium 133 L (137-145) mmol/L Potassium 4.0 (3.5-5.1) mmol/L Chloride 100 (98-107) mmol/L Carbon Dioxide 23 (22-30) mmol/L BUN 13 (9-20) mg/dL Creatinine 0.90 (0.66-1.25) mg/dL Glucose 99 (74-99) mg/dL Calcium 8.2 L (8.4-10.2) mg/dL Adrenal panel 01/18/24 Range/Units 17:45 Sodium 133 L (137-145) mmol/L Potassium 4.0 (3.5-5.1) mmol/L Chloride 100 (98-107) mmol/L Carbon Dioxide 23 (22-30) mmol/L BUN 13 (9-20) mg/dL Creatinine 0.90 (0.66-1.25) mg/dL Glucose 99 (74-99) mg/dL Calcium 8.2 L (8.4-10.2) mg/dL Total Bilirubin 0.5 (0.2-1.3) mg/dL AST 23 (17-59) U/L ALT 28 (4-49) U/L Alkaline Phosphatase 155 H (38-126) U/L Total Protein 6.1 L (6.3-8.2) g/dL Albumin 3.0 L (3.5-5.0) g/dL - Imaging Comments: Right foot x-ray no suspicious changes to suggest osteomyelitis. Wound at the ball of the foot plantar aspect, no acute osseous abnormality, diffuse soft tissue swelling. Assessment and Plan Assessment: 1. Infected right foot/toe diabetic wound 2. Cellulitis 3. Diabetes mellitus with peripheral neuropathy Plan: 1. Keep patient n.p.o. 2. Patient scheduled for debridement however likely right great toe amputation with wound VAC application 3. Medical management per primary medical team 4. Antibiotics per infectious disease Thank you for this consultation, we will continue to follow. The impression and plan of care has been dictated as directed. Dr. Jo I performed a history and examination of this patient, discussed the same with the dictator. I agree with the dictator's note ,documented as a scribe. Any additional findings or plans will be noted.
--- NOTE | 2024-01-19 10:26 | P.CONS ---
History of Present Illness - Reason for Consult Consult date: 01/19/24 wound care - History of Present Illness This is a pleasant 63-year-old male with a history of diabetes mellitus with peripheral neuropathy and a wound to his right foot and great toe that has been there for at least the last 2 months duration. He states it started out as a callus on the bottom of his foot. He states that he has been caring for the wound himself at home, he has not seen a physician for it. States it started swelling and getting red about 2 weeks ago. Patient went to his primary care provider yesterday and was sent to the ER for evaluation. States also started to have significant amount of drainage and foul odor. X-ray reports no osteomyelitis. Right great toe shows remodeling related to infection. He is scheduled for amputation possible negative pressure wound VAC to be applied. Review Of Systems: Constitutional: No fever, no chills, no night sweats. No weight change. No weakness, fatigue or lethargy. No daytime sleepiness. Integumentary:reports wounds, no lesions. No rash or pruritus. No unusual bruising. No change in hair or nails. Physical exam: General Appearance: Alert, cooperative, no distress, appears stated age. Skin: See HPI all other Skin color, texture, tugor normal, no rashes or lesions. Neurologic: Alert oriented x3 Assessment: 1. Nonhealing ulceration with bone necrosis right great toe 2. Diabetic foot ulcer Plan: 1. Patient is scheduled for a amputation with possible negative pressure wound VAC. Until surgery may apply a wet-to-dry dressing to the site. Will be happy to see him after discharge to assist in healing. If negative pressure wound VAC is placed in surgery continue at 125 mmHg continuous suction with black foam. Thank you for the consultation any questions please contact the wound care center DNP note has been reviewed and discussed with Dr. Ramirez and the impression and plan of care has been directed as dictated. Past Medical History Past Medical History: Diabetes Mellitus, Hyperlipidemia, Hypertension History of Any Multi-Drug Resistant Organisms: None Reported Past Surgical History: Back Surgery Additional Past Surgical History / Comment(s): colon surgery Past Psychological History: No Psychological Hx Reported Past Alcohol Use History: None Reported Past Drug Use History: Marijuana Medications and Allergies Home Medications Medication Instructions Recorded Confirmed Type Gabapentin [Neurontin] 600 mg PO TID@0800,1700,2200 06/30/19 01/18/24 History Hydrocodone/Acetaminophen [[place] 1 tab PO Q8H PRN 06/30/19 01/18/24 History 7.5-325] Tamsulosin HCl [Flomax] 0.4 mg PO BID@0800,1700 06/30/19 01/18/24 History lisinopriL [Zestril] 5 mg PO DAILY@0800 06/30/19 01/18/24 History metFORMIN HCL [Glucophage] 1,000 mg PO BID-W/MEALS@08,17 06/30/19 01/18/24 History Atorvastatin [Lipitor] 40 mg PO HS@0 01/18/24 01/18/24 History Erythromycin Ophth Oint [Romycin 1 applic BOTH EYES DIRECTED 01/18/24 01/18/24 History Ophth Oint] Finasteride [Proscar] 5 mg PO DAILY@0800 01/18/24 01/18/24 History Furosemide [Lasix] 20 mg PO DAILY@0800 01/18/24 01/18/24 History Insulin Aspart Prot/Insuln Asp 54 unit SQ DIRECTED 01/18/24 01/18/24 History [NovoLOG MIX 70-30 Flexpen] Liraglutide [Victoza 3-Narendra] 1.8 mg SQ DIRECTED 01/18/24 01/18/24 History oxyBUTYnin chloride [Ditropan] 5 mg PO BID@0800,1700 01/18/24 01/18/24 History rOPINIRole HCL [Requip] 3 mg PO HS@219901/18/24 01/18/24 History Allergies Allergy/AdvReac Type Severity Reaction Status Date / Time latex Allergy Rash/Hives Verified 01/18/24 19:42 sulfamethoxazole Allergy Rash and Verified 01/18/24 19:42 [From Bactrim] Hives trimethoprim [From Bactrim] Allergy Rash and Verified 01/18/24 19:42 Hives Physical Exam Vitals: Vital Signs Temp Pulse Pulse Resp BP BP Pulse Ox 01/19/24 09:20 98.9 F 92 16 107/67 97 01/19/24 03:50 99 17 107/64 64 L 01/19/24 02:00 70 15 123/70 97 01/19/24 01:00 75 16 120/68 98 03/01/24 00:00 84 16 126/72 99 01/18/24 22:04 99.7 F H 122 H 20 129/74 96 01/18/24 15:49 99 F 48 L 20 110/66 99 Intake and Output 01/18/24 01/19/24 01/19/24 22:59 06:59 14:59 Other: Weight 108.862 kg Results CBC & Chem 7: 01/18/24 17:45 01/18/24 17:45 Labs: Abnormal Lab Results - Last 24 Hours (Table) 01/18/24 01/18/24 01/18/24 Range/Units 17:45 17:45 17:45 WBC 13.4 H (3.8-10.6) k/uL RBC 3.83 L (4.30-5.90) m/uL Hgb 11.0 L (13.0-17.5) gm/dL Hct 33.3 L (39.0-53.0) % RDW 15.8 H (11.5-15.5) % Neutrophils # 11.2 H (1.3-7.7) k/uL ESR (0-20) mm/Hr Sodium 133 L (137-145) mmol/L POC Glucose (mg/dL) (70-110) mg/dL Plasma Lactic Acid Joby 2.2 H* (0.7-2.0) mmol/L Calcium 8.2 L (8.4-10.2) mg/dL Alkaline Phosphatase 155 H (38-126) U/L C-Reactive Protein (<1.0) mg/dL Total Protein 6.1 L (6.3-8.2) g/dL Albumin 3.0 L (3.5-5.0) g/dL 01/18/24 01/18/24 01/18/24 Range/Units 17:45 17:45 22:34 WBC (3.8-10.6) k/uL RBC (4.30-5.90) m/uL Hgb (13.0-17.5) gm/dL Hct (39.0-53.0) % RDW (11.5-15.5) % Neutrophils # (1.3-7.7) k/uL ESR 99 H (0-20) mm/Hr Sodium (137-145) mmol/L POC Glucose (mg/dL) 125 H (70-110) mg/dL Plasma Lactic Acid Joby (0.7-2.0) mmol/L Calcium (8.4-10.2) mg/dL Alkaline Phosphatase (38-126) U/L C-Reactive Protein 24.4 H (<1.0) mg/dL Total Protein (6.3-8.2) g/dL Albumin (3.5-5.0) g/dL 01/19/24 Range/Units 07:33 WBC (3.8-10.6) k/uL RBC (4.30-5.90) m/uL Hgb (13.0-17.5) gm/dL Hct (39.0-53.0) % RDW (11.5-15.5) % Neutrophils # (1.3-7.7) k/uL ESR (0-20) mm/Hr Sodium (137-145) mmol/L POC Glucose (mg/dL) 151 H (70-110) mg/dL Plasma Lactic Acid Joby (0.7-2.0) mmol/L Calcium (8.4-10.2) mg/dL Alkaline Phosphatase (38-126) U/L C-Reactive Protein (<1.0) mg/dL Total Protein (6.3-8.2) g/dL Albumin (3.5-5.0) g/dL Microbiology - Last 24 Hours (Table) 01/18/24 17:55 Gram Stain - Preliminary Foot - Right Assessment and Plan (1) Non-pressure chronic ulcer of other part of right foot with necrosis of bone Current Visit: Yes Status: Acute Code(s): L97.514 - NON-PRS CHRONIC ULCER OTH PRT RIGHT FOOT W NECROSIS OF BONE SNOMED Code(s): 07467403849910537 (2) Type 2 diabetes mellitus with foot ulcer Current Visit: Yes Status: Acute Code(s): E11.621 - TYPE 2 DIABETES MELLITUS WITH FOOT ULCER; L97.509 - NON-PRESSURE CHRONIC ULCER OTH PRT UNSP FOOT W UNSP SEVERITY SNOMED Code(s): 330283137
[2024-01-19 11:32] LABS: HCT 28.7 % (39.6-50.0); HGB 9.4 g/dL (13.0-17.0); MCH 27.8 pg (27.0-32.0); MCHC 32.8 g/dL (32.0-37.0); MCV 84.9 FL (80.0-97.0); Mean Platelet Volume 9.9 FL (9.5-12.2); NRBC Per 100 WBC 0 X 10*3/uL (0.00-0.01); Platelet Count 403 X 10*3/uL (140-440); RBC 3.38 X 10*6/uL (4.40-5.60); RDW 16.3 % (11.5-14.5); WBC 10.52 X 10*3/uL (4.50-10.00)
[2024-01-19 11:46] LABS: Glucose,Whole Blood 170 mg/dL (70-110)
[2024-01-19 11:47] LABS: ALT 21 U/L (10-49); AST 14 U/L (14-35); Albumin 2.7 g/dL (3.8-4.9); Albumin/Globulin Ratio 1.04 Ratio (1.60-3.17); Alkaline Phosphatase 138 U/L (41-126); Blood Urea Nitrogen 10.4 mg/dL (9.0-27.0); Calcium 8.1 mg/dL (8.7-10.3); Carbon Dioxide 21.4 mmol/L (21.6-31.8); Chloride 100 mmol/L (96-109); Globulin 2.6 g/dL (1.6-3.3); Glucose 140 mg/dL (70-110); Potassium 4.1 mmol/L (3.5-5.5); Sodium 134 mmol/L (135-145); Total Bilirubin 0.3 mg/dL (0.3-1.2); Total Protein 5.3 g/dL (6.2-8.2)
[2024-01-19] MEDS: INSULN ASP PRT/INSULIN ASPART 100 UNIT/ML 10 ML VIAL SQ SCH (12:01)
[2024-01-19] MEDS: IV FLUID CONTINUATION 800 ML IV ONE (12:57)
[2024-01-19 13:09] LABS: Glucose,Whole Blood 139 mg/dL (70-110)
[2024-01-19] MEDS: ONDANSETRON 4 MG/2 ML VIAL IVP ONE (13:09)
[2024-01-19] MEDS: DEXAMETHASONE SOD PHOSPHATE 4 MG/ML 1 ML VIAL IVP ONE (13:09)
[2024-01-19] MEDS: FAMOTIDINE 20 MG/2 ML VIAL IVP ONE (13:09)
[2024-01-19] MEDS ORDERED: fentaNYL (PF) 50 MCG/ML 2 ML AMP ONE (13:47)
[2024-01-19] MEDS ORDERED: KETAMINE HCL IN 0.9 % NACL 50 MG/5 ML SYRINGE ONE (13:47)
[2024-01-19] MEDS ORDERED: PHENYLEPHRINE-0.9% NACL SYG 1,000 MCG/10 ML SYRINGE ONE (13:47)
[2024-01-19] MEDS: LIDOCAINE 1% INJ 10MG/ML (20 ML MDV) SQ ONE (13:47)
[2024-01-19] MEDS ORDERED: SUCCINYLCHOLINE CHLORIDE 200 MG/10 ML VIAL IV ONE (13:47)
[2024-01-19] MEDS ORDERED: MIDAZOLAM 2 MG/2 ML VIAL ONE (13:47)
[2024-01-19] MEDS ORDERED: PROPOFOL 10 MG/ML 20 ML VIAL IV ONE (13:47)
[2024-01-19] MEDS: LACTATED RINGERS 1,000 ML IV ONE (14:46)
[2024-01-19 15:31] LABS: Glucose,Whole Blood 104 mg/dL (70-110)
--- NOTE | 2024-01-19 16:46 | P.OP ---
Date of Procedure: 01/19/24 Description of Procedure: SURGEON: Kaley Jo DO [employer]CTOR ASSEMBLER: None PREOPERATIVE DIAGNOSIS: Nonhealing, infected diabetic foot wound POSTOPERATIVE DIAGNOSIS: Same, tunneling to mid forefoot OPERATION: Right first toe ray amputation. ANESTHESIA: General ESTIMATED BLOOD LOSS: 20 cc SPECIMENS REMOVED: Right great toe COMPLICATIONS: None OPERATIVE FINDINGS: Patient is a 63-year-old male with a nonhealing right plantar wound with subsequent worsening of his wound and purulent drainage who presented today to the ER for this. After evaluation it was recommended he undergo operative debridement and potential amputation. Risk and benefits were discussed. Similar symptoms willing to proceed. DESCRIPTION OF PROCEDURE: This patient was brought to the operating room,. General anesthesia was induced the operative foot was prepped and draped in sterile manner. An incision was made at the base of the first toe deep into skin and fascia, and on plantar aspect was incised to include the plantar wound and dorsal aspect until we reached the head of the metatarsal bone. There was purulent drainage at the joint itself which was cultured. The tendons were divided in plantar and dorsal aspects. The first toe was removed. Further incision was made on the medial portion of the foot and a ray amputation of the first metatarsal was performed with an oscillating saw. There were minimal bleeding points which were electrocoagulated and some of them were suture ligated. The area was then copiously irrigated. Upon further inspection of the wound there was a tunnel on the plantar side of the first metatarsal that tracked all the way down to the midfoot, approximately 10 to 12 cm. A counterincision was made at the plantar portion of the foot and the affected purulent appearing tendon was transected and excised. Base of the wound looked clean, and the wound was copiously irrigated with saline. 1 inch iodoform packing was placed through the tunnel and tract and up through the incision spot. At the medial portion, a few interrupted sutures of 3-0 nylon were placed to allow for approximation. Hemostasis was well controlled and pressure dressing was applied. The patient tolerated the procedure well.
[2024-01-19 18:16] LABS: Glucose,Whole Blood 115 mg/dL (70-110)
[2024-01-19] MEDS: AMPICILLIN-SULBACTAM 3 GM in SODIUM CHLORIDE 0.9% 100 ML IVPB SCH (18:40)
[2024-01-19 20:49] LABS: Glucose,Whole Blood 175 mg/dL (70-110)
[2024-01-19] MEDS: ERYTHROMYCIN 5 MG/GM OPHTH OINT 3.5 GM TUBE BOTH EYES SCH (22:09)
[2024-01-20] MEDS: HYDROcodone/APAP 7.5-325MG 1 EACH TAB PO PRN (03:54)
[2024-01-20 07:23] LABS: African American GFR (CKD) >90 (>60 ml/min/1.73 sqM); Non-African American GFR(CKD) >90 (>60 ml/min/1.73 sqM)
[2024-01-20 08:01] LABS: Glucose,Whole Blood 224 mg/dL (70-110)
--- NOTE | 2024-01-20 08:58 | P.CONS ---
History of Present Illness - Reason for Consult Consult date: 01/19/24 - History of Present Illness Patient is a 63-year-old male with a past medical history of A-fib diabetes mellitus hypertension hyperlipidemia patient presenting to the ER for evaluation of wound on the plantar aspect of the right big toe which apparently has been there for almost 2 months now patient mention the wound started with a callus on the plantar aspect of the right foot subsequent developing into a wo und with the patient has been taking care of it at home however the patient noticed to having increasing swelling and redness that has been getting worse over the last 2 weeks patient did have diabetic neuropathy denies significant pain he did have some pressure sensation to the right foot with significant swelling and redness and started having a foul-smelling drainage for the patient presented to the hospital on arrival to the ER patient was running a low-grade fever of 99.7 F patient was tachycardic but not hypotensive or hypoxic patient did have a white count of 13.4 with a left shift creatinine has been normal liver enzymes are normal blood cultures obtained which are currently pending patient did have x-ray of the foot no suspicious changes to suggest osteomyelitis no acute bony abnormality diffuse soft tissue swelling patient has been eval by vascular surgery and plan for amputation of the toe this afternoon patient was started on vancomycin and Zosyn infectious disease was consulted for further management of antibiotic therapy Past Medical History Past Medical History: Diabetes Mellitus, Hyperlipidemia, Hypertension History of Any Multi-Drug Resistant Organisms: None Reported Past Surgical History: Back Surgery Additional Past Surgical History / Comment(s): colon surgery Past Psychological History: No Psychological Hx Reported Past Alcohol Use History: None Reported Past Drug Use History: Marijuana Medications and Allergies Home Medications Medication Instructions Recorded Confirmed Type Gabapentin [Neurontin] 600 mg PO TID@0800,1700,2200 06/30/19 01/18/24 History Hydrocodone/Acetaminophen [Lynd 1 tab PO Q8H PRN 06/30/19 01/18/24 History 7.5-325] Tamsulosin HCl [Flomax] 0.4 mg PO BID@0800,1700 06/30/19 01/18/24 History lisinopriL [Zestril] 5 mg PO DAILY@0800 06/30/19 01/18/24 History metFORMIN HCL [Glucophage] 1,000 mg PO BID-W/MEALS@,06/30/1924 History Atorvastatin [Lipitor] 40 mg PO HS@2200 01/18/24 01/18/24 History Erythromycin Ophth Oint [Romycin 1 applic BOTH EYES DIRECTED 01/18/24 01/18/24 History Ophth Oint] Finasteride [Proscar] 5 mg PO DAILY@0800 01/18/24 01/18/24 History Furosemide [Lasix] 20 mg PO DAILY@0800 01/18/24 01/18/24 History Insulin Aspart Prot/Insuln Asp 54 unit SQ BID 01/18/24 01/19/24 History [NovoLOG MIX 70-30 Flexpen] Liraglutide [Victoza 3-Narendra] 1.8 mg SQ DAILY 01/18/24 01/19/24 History oxyBUTYnin chloride [Ditropan] 5 mg PO BID@0800,1700 01/18/24 01/18/24 History rOPINIRole HCL [Requip] 3 mg PO HS@2200 01/18/24 01/18/24 History Allergies Allergy/AdvReac Type Severity Reaction Status Date / Time latex Allergy Rash/Hives Verified 01/19/24 13:05 sulfamethoxazole Allergy Rash and Verified 01/19/24 13:05 [From Bactrim] Hives trimethoprim [From Bactrim] Allergy Rash and Verified 01/19/24 13:05 Hives Physical Exam Vitals: Vital Signs Temp Pulse Pulse Resp BP BP Pulse Ox 01/19/24 09:20 98.9 F 92 16 107/67 97 01/19/24 03:50 99 17 107/64 64 L 01/19/24 02:00 70 15 123/70 97 01/19/24 01:00 75 16 120/68 98 01/19/24 00:00 84 16 126/72 99 01/18/24 22:04 99.7 F H 122 H 20 129/74 96 01/18/24 15:49 99 F 48 L 20 110/66 99 Intake and Output 01/18/24 01/19/24 01/19/24 22:59 06:59 14:59 Other: Weight 108.862 kg Results CBC & Chem 7: 01/19/24 07:31 01/20/24 06:12 Labs: Abnormal Lab Results - Last 24 Hours (Table) 0201/18/24 01/18/24 Range/Units 17:45 17:45 17:45 WBC 13.4 H (3.8-10.6) k/uL RBC 3.83 L (4.30-5.90) m/uL Hgb 11.0 L (13.0-17.5) gm/dL Hct 33.3 L (39.0-53.0) % RDW 15.8 H (11.5-15.5) % Neutrophils # 11.2 H (1.3-7.7) k/uL ESR (0-20) mm/Hr Sodium 133 L (137-145) mmol/L POC Glucose (mg/dL) (70-110) mg/dL Plasma Lactic Acid Joby 2.2 H* (0.7-2.0) mmol/L Calcium 8.2 L (8.4-10.2) mg/dL Alkaline Phosphatase 155 H (38-126) U/L C-Reactive Protein (<1.0) mg/dL Total Protein 6.1 L (6.3-8.2) g/dL Albumin 3.0 L (3.5-5.0) g/dL 01/18/24 01/18/24 01/18/24 Range/Units 17:45 17:45 22:34 WBC (3.8-10.6) k/uL RBC (4.30-5.90) m/uL Hgb (13.0-17.5) gm/dL Hct (39.0-53.0) % RDW (11.5-15.5) % Neutrophils # (1.3-7.7) k/uL ESR 99 H (0-20) mm/Hr Sodium (137-145) mmol/L POC Glucose (mg/dL) 125 H (70-110) mg/dL Plasma Lactic Acid Joby (0.7-2.0) mmol/L Calcium (8.4-10.2) mg/dL Alkaline Phosphatase (38-126) U/L C-Reactive Protein 24.4 H (<1.0) mg/dL Total Protein (6.3-8.2) g/dL Albumin (3.5-5.0) g/dL 01/19/24 01/19/24 Range/Units 07:31 07:33 WBC 10.52 H (3.8-10.6) k/uL RBC 3.38 L (4.30-5.90) m/uL Hgb 9.4 L (13.0-17.5) gm/dL Hct 28.7 L (39.0-53.0) % RDW 16.3 H (11.5-15.5) % Neutrophils # (1.3-7.7) k/uL ESR (0-20) mm/Hr Sodium (137-145) mmol/L POC Glucose (mg/dL) 151 H (70-110) mg/dL Plasma Lactic Acid Joby (0.7-2.0) mmol/L Calcium (8.4-10.2) mg/dL Alkaline Phosphatase (38-126) U/L C-Reactive Protein (<1.0) mg/dL Total Protein (6.3-8.2) g/dL Albumin (3.5-5.0) g/dL Microbiology - Last 24 Hours (Table) 01/18/24 17:55 Gram Stain - Preliminary Foot - Right Assessment and Plan Plan: 1-patient presented to hospital with extensive wound to the right foot and this patient did have significant swelling of the right big toe with the wound on the plantar aspect concerning for osteomyelitis and will need to cover for the polymicrobial master usually associated with diabetic foot infection 2-await surgical debridement and deep culture 3-continue the vancomycin however switch Zosyn to Unasyn due to risk of nephrotoxicity We will follow on clinical condition and cultures to further adjust medication if needed Thank you for this consultation we will follow the patient along with you Dictation was produced using [employer] software. please excuse any grammatical, word or spelling errors.
[2024-01-20 12:14] LABS: Glucose,Whole Blood 131 mg/dL (70-110)
--- NOTE | 2024-01-20 14:33 | P.PN ---
Subjective Progress Note Date: 01/20/24 Status post ray amputation first toe of the right foot Objective - Vital Signs Vital signs: Vital Signs Temp 97.6 F 01/20/24 08:00 Pulse 81 01/20/24 08:00 Resp 16 01/20/24 08:00 BP 93/54 01/20/24 08:00 Pulse Ox 97 01/20/24 08:00 FiO2 Intake & Output 01/19/24 01/20/24 01/20/24 18:59 06:59 18:59 Intake Total 1200 Output Total 220 Balance 980 Weight 108.862 kg Intake: IV 1200 Output: Urine 200 Estimated Blood Loss 20 Other: Voiding Method Toilet Urinal Bedside Commode Urinal # Voids 1 3 # Bowel Movements 1 - Exam Patient is awake, alert, cooperative no apparent distress. Surgical dressings are taken down and packing removed. No bleeding is noted. Tissues appear relatively well-perfused. The wound is repacked with saline moistened gauze and redressed. - Labs CBC & Chem 7: 01/19/24 07:31 01/20/24 06:12 Labs: Abnormal Lab Results - Last 24 Hours (Table) 01/19/24 01/19/24 01/20/24 Range/Units 18:14 20:47 07:59 POC Glucose (mg/dL) 115 H 175 H 224 H (70-110) mg/dL 01/20/24 Range/Units 12:13 POC Glucose (mg/dL) 131 H (70-110) mg/dL Microbiology - Last 24 Hours (Table) 01/18/24 17:55 Gram Stain - Preliminary Foot - Right Wound Culture - Preliminary Presumptive MRSA Strep agalactiae - (group b) Mariam albicans 01/18/24 17:45 Blood Culture - Preliminary Blood 01/18/24 17:45 Blood Culture - Preliminary Blood Assessment and Plan Assessment: 1: Status post ray amputation first toe right foot. 2: Greater than 20-year history of diabetes mellitus. Plan: 1: Continue with IV antibiotics and local wound care. 2: Will ask physical therapy to evaluate patient for ambulatory status with nonweightbearing right forefoot area.
[2024-01-20] MEDS ORDERED: ZINC OXIDE PASTE (Z-GUARD) 1 APPLIC TOPICAL PRN (16:18)
[2024-01-20 17:11] LABS: Glucose,Whole Blood 99 mg/dL (70-110)
[2024-01-20] MEDS: LOPERAMIDE 2 MG CAP PO PRN (18:24)
[2024-01-20] MEDS: VANCOMYCIN TROUGH DUE 1 EACH MISC MISCELLANE ONE (20:00)
[2024-01-20 20:52] LABS: Glucose,Whole Blood 203 mg/dL (70-110)
--- NOTE | 2024-01-20 22:18 | P.PN ---
Subjective Progress Note Date: 01/20/24 Principal diagnosis: Reason for follow-up is extensive right diabetic foot infection and possible osteomyelitis Patient is a 63-year-old male with a past medical history of A-fib diabetes mellitus hypertension hyperlipidemia patient presenting to the ER for evaluation of wound on the plantar aspect of the right big toe which apparently has been there for almost 2 months patient has been diagnosed with extensive right diabetic foot infection in this patient who is status post right first toe ray amputation completed on 01/19/2024. On today's visit that is 01/20/2024,the patient remains to be afebrile, patient is on room air not requiring supplemental oxygen and denies any shortness of breath no chest pain or cough.Patient denies having any nausea or vomiting, no abdominal pain and no diarrhea has been reported pain to the right foot has decreased in intensity. Patient did have a creatinine 0.84 local cultures growing present MRSA and Streptococcus agalactiae Objective - Vital Signs Vital signs: Vital Signs Temp 97.6 F 01/20/24 08:00 Pulse 81 01/20/24 08:00 Resp 16 01/20/24 08:00 BP 93/54 01/20/24 08:00 Pulse Ox 97 01/20/24 08:00 FiO2 Intake & Output 01/19/24 01/20/24 01/20/24 18:59 06:59 18:59 Intake Total 1200 Output Total 220 Balance 980 Weight 108.862 kg Intake: IV 1200 Output: Urine 200 Estimated Blood Loss 20 Other: Voiding Method Toilet Urinal Bedside Commode Urinal # Voids 1 3 # Bowel Movements 1 - Exam GENERAL DESCRIPTION: Middle-age yuriy lying in bed in no distress RESPIRATORY SYSTEM: Unlabored breathing , decreased breath sounds at bases HEART: S1 S2 regular rate and rhythm , ABDOMEN: Soft , no tenderness EXTREMITIES: Right foot is currently dressed in OR dressing - Labs CBC & Chem 7: 01/19/24 07:31 01/20/24 06:12 Labs: Abnormal Lab Results - Last 24 Hours (Table) 01/19/24 01/19/24 01/19/24 Range/Units 07:31 07:31 11:45 WBC 10.52 H (4.50-10.00) X 10*3/uL RBC 3.38 L (4.40-5.60) X 10*6/uL Hgb 9.4 L (13.0-17.0) g/dL Hct 28.7 L (39.6-50.0) % RDW 16.3 H (11.5-14.5) % Sodium 134 L (135-145) mmol/L Carbon Dioxide 21.4 L (21.6-31.8) mmol/L Anion Gap 12.60 H (4.00-12.00) mmol/L Glucose 140 H (70-110) mg/dL POC Glucose (mg/dL) 170 H (70-110) mg/dL Calcium 8.1 L (8.7-10.3) mg/dL Alkaline Phosphatase 138 H (41-126) U/L Total Protein 5.3 L (6.2-8.2) g/dL Albumin 2.7 L (3.8-4.9) g/dL Albumin/Globulin Ratio 1.04 L (1.60-3.17) Ratio 01/19/24 01/19/24 01/19/24 Range/Units 13:08 18:14 20:47 WBC (4.50-10.00) X 10*3/uL RBC (4.40-5.60) X 10*6/uL Hgb (13.0-17.0) g/dL Hct (39.6-50.0) % RDW (11.5-14.5) % Sodium (135-145) mmol/L Carbon Dioxide (21.6-31.8) mmol/L Anion Gap (4.00-12.00) mmol/L Glucose (70-110) mg/dL POC Glucose (mg/dL) 139 H 115 H 175 H (70-110) mg/dL Calcium (8.7-10.3) mg/dL Alkaline Phosphatase (41-126) U/L Total Protein (6.2-8.2) g/dL Albumin (3.8-4.9) g/dL Albumin/Globulin Ratio (1.60-3.17) Ratio 01/20/24 Range/Units 07:59 WBC (4.50-10.00) X 10*3/uL RBC (4.40-5.60) X 10*6/uL Hgb (13.0-17.0) g/dL Hct (39.6-50.0) % RDW (11.5-14.5) % Sodium (135-145) mmol/L Carbon Dioxide (21.6-31.8) mmol/L Anion Gap (4.00-12.00) mmol/L Glucose (70-110) mg/dL POC Glucose (mg/dL) 224 H (70-110) mg/dL Calcium (8.7-10.3) mg/dL Alkaline Phosphatase (41-126) U/L Total Protein (6.2-8.2) g/dL Albumin (3.8-4.9) g/dL Albumin/Globulin Ratio (1.60-3.17) Ratio Microbiology - Last 24 Hours (Table) 01/18/24 17:55 Gram Stain - Preliminary Foot - Right Wound Culture - Preliminary Presumptive MRSA Strep agalactiae - (group b) Mariam albicans 01/18/24 17:45 Blood Culture - Preliminary Blood 01/18/24 17:45 Blood Culture - Preliminary Blood Assessment and Plan (1) MRSA (methicillin resistant staph aureus) culture positive Current Visit: Yes Status: Acute Code(s): Z22.322 - CARRIER OR SUSPECTED CARRIER OF METHICILLIN RESIS STAPH SNOMED Code(s): 088434289 (2) Diabetic foot infection Current Visit: Yes Status: Acute Code(s): E11.628 - TYPE 2 DIABETES MELLITUS WITH OTHER SKIN COMPLICATIONS; L08.9 - LOCAL INFECTION OF THE SKIN AND SUBCUTANEOUS TISSUE, UNSP SNOMED Code(s): 129395962 (3) Type 2 diabetes mellitus with foot ulcer Current Visit: Yes Status: Acute Code(s): E11.621 - TYPE 2 DIABETES MELLITUS WITH FOOT ULCER; L97.509 - NON-PRESSURE CHRONIC ULCER OTH PRT UNSP FOOT W UNSP SEVERITY SNOMED Code(s): 565433358 Plan: 1-patient presented to hospital with extensive wound to the right foot and this patient did have significant swelling of the right big toe with the wound on the plantar aspect concerning for osteomyelitis and will need to cover for the polymicrobial master usually associated with diabetic foot infection 2-patient is status post right first ray amputation and deep culture initial culture growing strep and a presumed MRSA 3-patient to continue the vancomycin and Unasyn while waiting for the OR cultures to finalize Dictation was produced using [employer] dictation software. please excuse any grammatical, word or spelling errors. Time with Patient: Less than 30
[2024-01-20 23:30] LABS: Glucose,Whole Blood 140 mg/dL (70-110)
[2024-01-21 06:34] LABS: Glucose,Whole Blood 145 mg/dL (70-110)
--- NOTE | 2024-01-21 07:09 | P.PN ---
Subjective Progress Note Date: 01/20/24 HISTORY OF PRESENT ILLNESS: 63-year-old male 89 office patient with past medical history of type 2 diabetes, Chronic edema, hyperlipidemia, BPH, chronic pain syndrome, chronic neuropathy and recurrent pressure ulcer both feet worse on the right on the left side which patient apparently had for the last 2 to 3 weeks he missed few appointment in the office last few months patient presented to the office today with concern about nonhealing ulcer in the base of the first and second toe involving the lower area with significant drainage and harsh callus with an open significant smelly drain. Checking on it in the office felt the area might be involving the bone and might have osteomyelitis the smell significant similar to what we see with Pseudomonas. Patient was sent to the emergency department to be study x-ray of the foot initially showed no suspicious changes suggestive of osteomyelitis but wound at all ball of the foot plantar aspect with diffuse soft tissue swelling. Laboratory value with white blood cell 13,400 hemoglobin 11 hematocrit 33 mostly neutrophil differential. Electrolytes showed hyponatremia with sodium at 133 significant abnormal liver function test, C-reactive protein was 24.4 with lactic acid 2.2 and calcium 8.2 with creatinine at 0.9. Slight reactive alkaline phosphatase at 155. With the severity of his symptoms was started on vancomycin along with Zosyn will continue Vanco dosed by pharmacy admit patient to the hospital to be seen by infectious disease and probably vascular. Culture of the probe on the blood close normal also defibrillator was done and to follow in the next few days. 01/20/2024: Patient is doing slightly better and is going for surgery to amputate the first right total because of osteomyelitis involvement. This culture was positive for MRSA he will be continued on vancomycin for now. Infectious disease consultation on the finalized antibiotics also patient seen wound care will require wound care after he is discharged from the hospital. Is sitting in a chair today taking a sponge bath feeling well his pain is under control, blood sugar slightly bit better will adjust his medication to keep his blood sugar under 150. REVIEW OF SYSTEMS: CONSTITUTIONAL: Well-developed no acute respiratory distress. EYES: No icterus sclerae, no conjunctivitis. EARS, NOSE, MOUTH, THROAT, and FACE: No sore throat, lymphadenopathy, carotid bruits or deformity. RESPIRATORY: No SOB cough or wheezes. CARDIOVASCULAR: But positive Palpitation, PND, Orthopnea, no angina. GASTROINTESTINAL: No Abd pain, Nausea or vomiting, no Diarrhea or constipation, No GI Bleed, no distention or masses. GENITOURINARY: Negative for Hematuria or UTI, no kidney stones. Decreased urine output. INTEGUMENT/BREAST: Negative for any muscular injury with mild osteoarthritis.. HEMATOLOGIC/LYMPHATIC: Negative for bleed or purpura. MUSCULOSKELTAL: Negative for Myalgia or arthralgia. Significant ulcerated area between first second and third toe involving the big bulk of the arch area NEURLOGICAL: No LOC, Sz or syncope, blurred vision dizziness or abnormality.. BEHAVIORAL/PSYCH: Negative. ENDOCRINE: Negative. PHYSICAL EXAMINATION: General Appearance: Alert, cooperative, no distress, slightly overweight and looks older than his age. Neck HEENT: Supple, no lymphadenopathy, no thyroid enlargement, no carotid bruits. Lungs: Decreased expansion with inspiration positive for rhonchi no crackles. Chest Wall: Decreased expansion with deep inspiration no tenderness and no deformity was found on exam, no costochondral pain or discomfort. Heart: Regular rate and rhythm, S1, S2 normal, no murmur, rub or gallop. Back: Symmetric, no curvature, ROM normal, no CVA tenderness. Abdomen: Soft, non-tender, bowel sounds active all four quadrants, no masses, no organomegaly. Extremities: Extremities normal, atraumatic, no cyanosis positive significant edema, right foot and open ulcer area started from in between first and second toe and spread to bottom part of his foot involving deeper area with significant drainage decreased pulse and dorsalis pedis posterior tibial. Pulses: 2+ and symmetric. Skin: Skin color, texture, tugor normal, no rashes or lesions. Neurologic: Alert oriented x3 cranial nerves II through XII intact, no motor deficit, no abnormal balance or gait. ASSESSMENT AND PLAN: _Diabetic foot: With MRSA post amputation of the right big toe continue current antibiotic continue wound care for now. _Severe cellulitis of the right foot with involvement of the bone post amputation of right big toe which will help to clear him a lot faster this way specially with IV antibiotics. _Osteomyelitis of the right big toe, post amputation continue postsurgical care. _Type 2 diabetes: Has been on Victoza 1.8 mg subcutaneous daily along with metformin 1000 g twice a day, continue Accu-Chek with sliding scale coverage random blood sugar running below 150. _Hyperlipidemia: Continue atorvastatin 40 mg a day. _Chronic neuropathy, has been on gabapentin 600 mg 3 times a day. _Hypertension: Still on lisinopril 5 mg a day titrate dose higher and add calcium channel darlyn if needed. _Chronic edema: Remain on furosemide 20 mg daily. _Restless leg syndrome: Remain on ropinirole 3 mg at bedtime. _Chronic pain syndrome: Remain on hydrocodone 7.5 mg every 6-8 hours as needed. Planning: Patient will continue wound care, continue to see infectious disease and vascular. Will be on IV antibiotics probably for the next 2 weeks and might require to go to wound care if able to manage at home. Expected discharge most likely around Monday. Objective - Vital Signs Vital signs: Vital Signs Temp 98.2 F 01/20/24 02:33 Pulse 91 01/20/24 02:33 Resp 16 01/20/24 02:33 BP 132/71 01/20/24 02:33 Pulse Ox 95 01/20/24 02:33 FiO2 Intake & Output 01/19/24 01/19/24 01/20/24 06:59 18:59 06:59 Intake Total 1200 Output Total 220 Balance 980 Weight 108.862 kg Intake: IV 1200 Output: Urine 200 Estimated Blood Loss 20 Other: Voiding Method Toilet Bedside Commode Urinal # Voids 1 3 # Bowel Movements 1 - Labs CBC & Chem 7: 01/19/24 07:31 01/20/24 06:12 Labs: Abnormal Lab Results - Last 24 Hours (Table) 01/18/24 01/19/24 01/19/24 Range/Units 17:45 07:31 07:31 WBC 10.52 H (4.50-10.00) X 10*3/uL RBC 3.38 L (4.40-5.60) X 10*6/uL Hgb 9.4 L (13.0-17.0) g/dL Hct 28.7 L (39.6-50.0) % RDW 16.3 H (11.5-14.5) % ESR 99 H (0-20) mm/Hr Sodium 134 L (135-145) mmol/L Carbon Dioxide 21.4 L (21.6-31.8) mmol/L Anion Gap 12.60 H (4.00-12.00) mmol/L Glucose 140 H (70-110) mg/dL POC Glucose (mg/dL) (70-110) mg/dL Calcium 8.1 L (8.7-10.3) mg/dL Alkaline Phosphatase 138 H (41-126) U/L Total Protein 5.3 L (6.2-8.2) g/dL Albumin 2.7 L (3.8-4.9) g/dL Albumin/Globulin Ratio 1.04 L (1.60-3.17) Ratio 01/19/24 01/19/24 01/19/24 Range/Units 07:33 11:45 13:08 WBC (4.50-10.00) X 10*3/uL RBC (4.40-5.60) X 10*6/uL Hgb (13.0-17.0) g/dL Hct (39.6-50.0) % RDW (11.5-14.5) % ESR (0-20) mm/Hr Sodium (135-145) mmol/L Carbon Dioxide (21.6-31.8) mmol/L Anion Gap (4.00-12.00) mmol/L Glucose (70-110) mg/dL POC Glucose (mg/dL) 151 H 170 H 139 H (70-110) mg/dL Calcium (8.7-10.3) mg/dL Alkaline Phosphatase (41-126) U/L Total Protein (6.2-8.2) g/dL Albumin (3.8-4.9) g/dL Albumin/Globulin Ratio (1.60-3.17) Ratio 01/19/24 01/19/24 Range/Units 18:14 20:47 WBC (4.50-10.00) X 10*3/uL RBC (4.40-5.60) X 10*6/uL Hgb (13.0-17.0) g/dL Hct (39.6-50.0) % RDW (11.5-14.5) % ESR (0-20) mm/Hr Sodium (135-145) mmol/L Carbon Dioxide (21.6-31.8) mmol/L Anion Gap (4.00-12.00) mmol/L Glucose (70-110) mg/dL POC Glucose (mg/dL) 115 H 175 H (70-110) mg/dL Calcium (8.7-10.3) mg/dL Alkaline Phosphatase (41-126) U/L Total Protein (6.2-8.2) g/dL Albumin (3.8-4.9) g/dL Albumin/Globulin Ratio (1.60-3.17) Ratio Microbiology - Last 24 Hours (Table) 01/18/24 17:45 Blood Culture - Preliminary Blood 01/18/24 17:45 Blood Culture - Preliminary Blood 01/18/24 17:55 Gram Stain - Preliminary Foot - Right
[2024-01-21 08:01] LABS: African American GFR (CKD) >90 (>60 ml/min/1.73 sqM); Non-African American GFR(CKD) >90 (>60 ml/min/1.73 sqM)
--- NOTE | 2024-01-21 08:58 | P.PN ---
Subjective Progress Note Date: 01/21/24 Postop day #2. Patient is without complaints. Objective - Vital Signs Vital signs: Vital Signs Temp 97.6 F 01/21/24 07:39 Pulse 87 01/21/24 07:39 Resp 16 01/21/24 07:39 BP 111/66 01/21/24 07:39 Pulse Ox 96 01/21/24 07:39 FiO2 Intake & Output 01/20/24 01/21/24 01/21/24 18:59 06:59 18:59 Output Total 1000 Balance -1000 Output: Urine 1000 Other: Voiding Method Urinal Urinal # Voids 3 # Bowel Movements 2 - Exam The dressings are removed completely. Wound appears relatively well. No cellulitic reaction noted. Wound is well drained. Wound is repacked with saline moistened gauze. - Labs CBC & Chem 7: 01/19/24 07:31 01/21/24 06:55 Labs: Abnormal Lab Results - Last 24 Hours (Table) 01/20/24 01/20/24 01/20/24 Range/Units 12:13 20:50 23:26 POC Glucose (mg/dL) 131 H 203 H 140 H (70-110) mg/dL 01/21/24 Range/Units 06:33 POC Glucose (mg/dL) 145 H (70-110) mg/dL Microbiology - Last 24 Hours (Table) 01/18/24 17:45 Blood Culture - Preliminary Blood 01/18/24 17:45 Blood Culture - Preliminary Blood 01/18/24 17:55 Gram Stain - Preliminary Foot - Right Wound Culture - Preliminary Presumptive MRSA Strep agalactiae - (group b) Mariam albicans Assessment and Plan Assessment: Postop day #2 status post ray amputation right first toe. Plan: Continue with local wound care and IV antibiotics administration as per ID.
--- NOTE | 2024-01-21 10:50 | P.PN ---
Subjective Progress Note Date: 01/21/24 Principal diagnosis: Reason for follow-up is extensive right diabetic foot infection and possible osteomyelitis Patient is a 63-year-old male with a past medical history of A-fib diabetes mellitus hypertension hyperlipidemia patient presenting to the ER for evaluation of wound on the plantar aspect of the right big toe which apparently has been there for almost 2 months patient has been diagnosed with extensive right diabetic foot infection in this patient who is status post right first toe ray amputation completed on 01/19/2024. On today's visit that is 01/21/2024, the patient continues to be afebrile, the patient is on room air and breathing comfortably, the Pt denies having any chest pain or cough, the patient denies having any abdominal pain no vomiting or any diarrhea has been reported by the nursing staff, denies any worsening pain to the right foot wound no further bleeding. Patient did have a creatinine of 0.84 vancomycin trough was 16 cultures with MRSA Streptococcus agalactiae for cultures pending Objective - Vital Signs Vital signs: Vital Signs Temp 97.6 F 01/21/24 07:39 Pulse 87 01/21/24 07:39 Resp 16 01/21/24 07:39 BP 111/66 01/21/24 07:39 Pulse Ox 96 01/21/24 07:39 FiO2 Intake & Output 01/20/24 01/21/24 01/21/24 18:59 06:59 18:59 Output Total 1000 300 Balance -1000 -300 Output: Urine 1000 300 Other: Voiding Method Urinal Urinal # Voids 3 # Bowel Movements 2 - Exam GENERAL DESCRIPTION: Middle-age yuriy lying in bed in no distress RESPIRATORY SYSTEM: Unlabored breathing , decreased breath sounds at bases HEART: S1 S2 regular rate and rhythm , ABDOMEN: Soft , no tenderness EXTREMITIES: Right foot dressing change this morning by surgery did note mention wound looking better - Labs CBC & Chem 7: 01/19/24 07:31 01/21/24 06:55 Labs: Abnormal Lab Results - Last 24 Hours (Table) 01/20/24 01/20/24 01/20/24 Range/Units 12:13 20:50 23:26 POC Glucose (mg/dL) 131 H 203 H 140 H (70-110) mg/dL 01/21/24 Range/Units 06:33 POC Glucose (mg/dL) 145 H (70-110) mg/dL Microbiology - Last 24 Hours (Table) 01/19/24 14:30 Gram Stain - Preliminary Toe - Right First 01/18/24 17:55 Gram Stain - Final Foot - Right Wound Culture - Final Methicillin resist S. aureus Strep agalactiae - (group b) Mariam albicans 01/18/24 17:45 Blood Culture - Preliminary Blood 01/18/24 17:45 Blood Culture - Preliminary Blood Assessment and Plan (1) MRSA (methicillin resistant staph aureus) culture positive Current Visit: Yes Status: Acute Code(s): Z22.322 - CARRIER OR SUSPECTED CARRIER OF METHICILLIN RESIS STAPH SNOMED Code(s): 995125768 (2) Diabetic foot infection Current Visit: Yes Status: Acute Code(s): E11.628 - TYPE 2 DIABETES MELLITUS WITH OTHER SKIN COMPLICATIONS; L08.9 - LOCAL INFECTION OF THE SKIN AND SUBCUTANEOUS TISSUE, UNSP SNOMED Code(s): 159450153 (3) Type 2 diabetes mellitus with foot ulcer Current Visit: Yes Status: Acute Code(s): E11.621 - TYPE 2 DIABETES MELLITUS WITH FOOT ULCER; L97.509 - NON-PRESSURE CHRONIC ULCER OTH PRT UNSP FOOT W UNSP SEVERITY SNOMED Code(s): 793932964 Plan: 1-patient presented to hospital with extensive wound to the right foot and this patient did have significant swelling of the right big toe with the wound on the plantar aspect concerning for osteomyelitis and will need to cover for the polymicrobial master usually associated with diabetic foot infection 2-patient is status post right first ray amputation and deep culture initial culture growing strep and a presumed MRSA 3-patient to continue the vancomycin, will discontinue Unasyn and add oral Flagyl to cover for the anaerobes will order PICC line for outpatient antibiotic Dictation was produced using [employer] dictation software. please excuse any grammatical, word or spelling errors. Time with Patient: Less than 30
[2024-01-21 12:34] LABS: Glucose,Whole Blood 168 mg/dL (70-110)
--- NOTE | 2024-01-21 13:19 | P.PN ---
Subjective Progress Note Date: 01/21/24 HISTORY OF PRESENT ILLNESS: 63-year-old male 89 office patient with past medical history of type 2 diabetes, Chronic edema, hyperlipidemia, BPH, chronic pain syndrome, chronic neuropathy and recurrent pressure ulcer both feet worse on the right on the left side which patient apparently had for the last 2 to 3 weeks he missed few appointment in the office last few months patient presented to the office today with concern about nonhealing ulcer in the base of the first and second toe involving the lower area with significant drainage and harsh callus with an open significant smelly drain. Checking on it in the office felt the area might be involving the bone and might have osteomyelitis the smell significant similar to what we see with Pseudomonas. Patient was sent to the emergency department to be study x-ray of the foot initially showed no suspicious changes suggestive of osteomyelitis but wound at all ball of the foot plantar aspect with diffuse soft tissue swelling. Laboratory value with white blood cell 13,400 hemoglobin 11 hematocrit 33 mostly neutrophil differential. Electrolytes showed hyponatremia with sodium at 133 significant abnormal liver function test, C-reactive protein was 24.4 with lactic acid 2.2 and calcium 8.2 with creatinine at 0.9. Slight reactive alkaline phosphatase at 155. With the severity of his symptoms was started on vancomycin along with Zosyn will continue Vanco dosed by pharmacy admit patient to the hospital to be seen by infectious disease and probably vascular. Culture of the probe on the blood close normal also defibrillator was done and to follow in the next few days. 01/20/2024: Patient is doing slightly better and is going for surgery to amputate the first right total because of osteomyelitis involvement. This culture was positive for MRSA he will be continued on vancomycin for now. Infectious disease consultation on the finalized antibiotics also patient seen wound care will require wound care after he is discharged from the hospital. Is sitting in a chair today taking a sponge bath feeling well his pain is under control, blood sugar slightly bit better will adjust his medication to keep his blood sugar under 150. 01/21/2024: Doing better so far the right first toe amputated site looks fine still oozing slightly. Culture came back positive for MRSA we will continue vancomycin not quite to be on it for at least 2 to 3 weeks BiV and then oral medication. As for Unasyn was stopped will add Flagyl to his regime for now for anaerobic coverage PICC line to be scheduled for tomorrow probably patient be doing outpatient antibiotic IV management. REVIEW OF SYSTEMS: CONSTITUTIONAL: Well-developed no acute respiratory distress. EYES: No icterus sclerae, no conjunctivitis. EARS, NOSE, MOUTH, THROAT, and FACE: No sore throat, lymphadenopathy, carotid bruits or deformity. RESPIRATORY: No SOB cough or wheezes. CARDIOVASCULAR: But positive Palpitation, PND, Orthopnea, no angina. GASTROINTESTINAL: No Abd pain, Nausea or vomiting, no Diarrhea or constipation, No GI Bleed, no distention or masses. GENITOURINARY: Negative for Hematuria or UTI, no kidney stones. Decreased urine output. INTEGUMENT/BREAST: Negative for any muscular injury with mild osteoarthritis.. HEMATOLOGIC/LYMPHATIC: Negative for bleed or purpura. MUSCULOSKELTAL: Negative for Myalgia or arthralgia. Significant ulcerated area between first second and third toe involving the big bulk of the arch area NEURLOGICAL: No LOC, Sz or syncope, blurred vision dizziness or abnormality.. BEHAVIORAL/PSYCH: Negative. ENDOCRINE: Negative. PHYSICAL EXAMINATION: General Appearance: Alert, cooperative, no distress, slightly overweight and looks older than his age. Neck HEENT: Supple, no lymphadenopathy, no thyroid enlargement, no carotid bruits. Lungs: Decreased expansion with inspiration positive for rhonchi no crackles. Chest Wall: Decreased expansion with deep inspiration no tenderness and no deformity was found on exam, no costochondral pain or discomfort. Heart: Regular rate and rhythm, S1, S2 normal, no murmur, rub or gallop. Back: Symmetric, no curvature, ROM normal, no CVA tenderness. Abdomen: Soft, non-tender, bowel sounds active all four quadrants, no masses, no organomegaly. Extremities: Extremities normal, atraumatic, no cyanosis positive significant edema, right foot and open ulcer area started from in between first and second toe and spread to bottom part of his foot involving deeper area with significant drainage decreased pulse and dorsalis pedis posterior tibial. Pulses: 2+ and symmetric. Skin: Skin color, texture, tugor normal, no rashes or lesions. Neurologic: Alert oriented x3 cranial nerves II through XII intact, no motor deficit, no abnormal balance or gait. ASSESSMENT AND PLAN: _Diabetic foot: With MRSA post amputation of the right big toe off Unasyn will continue vancomycin and add Flagyl. _Severe cellulitis of the right foot with involvement of the bone post amputation of right big toe which will help to clear him a lot faster this way specially with IV antibiotics. _Osteomyelitis of the right big toe, post amputation continue postsurgical care. Will be on IV antibiotic for at least 2 to 3 weeks. _Type 2 diabetes: Has been on Victoza 1.8 mg subcutaneous daily along with metformin 1000 g twice a day, continue Accu-Chek with sliding scale coverage ra ndom blood sugar running below 150. _Hyperlipidemia: Continue atorvastatin 40 mg a day. _Chronic neuropathy, has been on gabapentin 600 mg 3 times a day. _Hypertension: Still on lisinopril 5 mg a day titrate dose higher and add calcium channel darlyn if needed. _Chronic edema: Remain on furosemide 20 mg daily. _Restless leg syndrome: Remain on ropinirole 3 mg at bedtime. _Chronic pain syndrome: Remain on hydrocodone 7.5 mg every 6-8 hours as needed. Patient seem to tolerate it very well. Planning: PICC line rescheduled for tomorrow probably IV antibiotic will be continued for total of 2 to 3 weeks. Objective - Vital Signs Vital signs: Vital Signs Temp 98.1 F 01/21/24 02:21 Pulse 84 01/21/24 02:21 Resp 15 01/21/24 02:21 BP 121/64 01/21/24 02:21 Pulse Ox 98 01/21/24 02:21 FiO2 Intake & Output 01/20/24 01/21/24 01/21/24 18:59 06:59 18:59 Output Total 1000 Balance -1000 Output: Urine 1000 Other: Voiding Method Urinal Urinal # Voids 3 # Bowel Movements 2 - Labs CBC & Chem 7: 01/19/24 07:31 01/21/24 06:55 Labs: Abnormal Lab Results - Last 24 Hours (Table) 01/20/24 01/20/24 01/20/24 Range/Units 07:59 12:13 20:50 POC Glucose (mg/dL) 224 H 131 H 203 H (70-110) mg/dL 01/20/24 01/21/24 Range/Units 23:26 06:33 POC Glucose (mg/dL) 140 H 145 H (70-110) mg/dL Microbiology - Last 24 Hours (Table) 01/18/24 17:45 Blood Culture - Preliminary Blood 01/18/24 17:45 Blood Culture - Preliminary Blood 01/18/24 17:55 Gram Stain - Preliminary Foot - Right Wound Culture - Preliminary Presumptive MRSA Strep agalactiae - (group b) Mariam albicans
[2024-01-21 17:16] LABS: Glucose,Whole Blood 98 mg/dL (70-110)
[2024-01-21] MEDS: metroNIDAZOLE 500 MG TAB PO SCH (17:38)
[2024-01-21 20:55] LABS: Glucose,Whole Blood 121 mg/dL (70-110)
[2024-01-22 04:46] LABS: African American GFR (CKD) >90 (>60 ml/min/1.73 sqM); Non-African American GFR(CKD) 89 (>60 ml/min/1.73 sqM)
[2024-01-22 07:26] LABS: ALT 28 U/L (4-49); AST 28 U/L (17-59); Albumin 2.4 g/dL (3.5-5.0); Albumin/Globulin Ratio 0.9; Alkaline Phosphatase 147 U/L (38-126); Anion Gap 7 mmol/L; Blood Urea Nitrogen 13 mg/dL (9-20); Calcium 7.9 mg/dL (8.4-10.2); Carbon Dioxide 22 mmol/L (22-30); Chloride 111 mmol/L (98-107); Globulin 2.7 g/dL; Glucose 105 mg/dL (74-99); Potassium 4.7 mmol/L (3.5-5.1); Sodium 140 mmol/L (137-145); Total Bilirubin 0.2 mg/dL (0.2-1.3); Total Protein 5.1 g/dL (6.3-8.2)
[2024-01-22 07:48] LABS: Basophils % (A) 0 %; Eosinophils # (A) 0.2 k/uL (0-0.7); Eosinophils % (A) 2 %; HGB 9.7 gm/dL (13.0-17.5); Hypochromasia Marked; Lymphocytes # (A) 1.5 k/uL (1.0-4.8); Lymphocytes % (A) 16 %; MCH 28.7 pg (25.0-35.0); MCHC 31.2 g/dL (31.0-37.0); MCV 91.9 fL (80.0-100.0); Mean Platelet Volume 8.3; Monocytes # (A) 0.6 k/uL (0-1.0); Monocytes % (A) 6 %; Neutrophils # (A) 7.3 k/uL (1.3-7.7); Neutrophils % (A) 75 %; Platelet Count 384 k/uL (150-450); RBC 3.37 m/uL (4.30-5.90); RDW 15.7 % (11.5-15.5); WBC 9.7 k/uL (3.8-10.6)
[2024-01-22 08:23] LABS: Glucose,Whole Blood 146 mg/dL (70-110)
[2024-01-22 12:09] LABS: Glucose,Whole Blood 175 mg/dL (70-110)
--- NOTE | 2024-01-22 12:13 | P.PN ---
Subjective Progress Note Date: 01/22/24 Principal diagnosis: Infected great toe wound Patient is seen and examined today as a follow-up. Postop day #3 for right great toe amputation. He states pain is well-managed. He has a postop shoe at the bedside. Physical therapy consulted, awaiting their evaluation. He is a febrile, infectious disease is following, he currently on IV antibiotics. Objective - Vital Signs Vital signs: Vital Signs Temp 98 F 01/22/24 08:00 Pulse 91 01/22/24 08:00 Resp 18 01/22/24 08:00 BP 131/67 01/22/24 08:00 Pulse Ox 98 01/22/24 08:00 FiO2 Intake & Output 01/21/24 01/22/24 01/22/24 18:59 06:59 18:59 Intake Total 118 Output Total 800 Balance -800 118 Intake: Oral 118 Output: Urine 800 Other: Voiding Method Urinal Urinal # Voids 2 - Exam General appearance: The patient is alert, oriented, appears in no acute distress. Obese. HET: Head is normocephalic and atraumatic. Pupils are equal and reactive. Neck: Supple. Abdomen: Soft, nondistended. Extremities: Right lower extremity swelling, right great toe wound appears relatively well and healing. Serosanguineous drainage on packing. Neurological: No focal deficits. - Labs CBC & Chem 7: 01/22/24 03:45 01/22/24 03:45 Labs: Abnormal Lab Results - Last 24 Hours (Table) 01/21/24 01/21/24 01/22/24 Range/Units 12:33 20:53 03:45 RBC (4.30-5.90) m/uL Hgb (13.0-17.5) gm/dL Hct (39.0-53.0) % RDW (11.5-15.5) % Chloride 111 H (98-107) mmol/L Glucose 105 H (74-99) mg/dL POC Glucose (mg/dL) 168 H 121 H (70-110) mg/dL Calcium 7.9 L (8.4-10.2) mg/dL Alkaline Phosphatase 147 H (38-126) U/L Total Protein 5.1 L (6.3-8.2) g/dL Albumin 2.4 L (3.5-5.0) g/dL 01/22/24 01/22/24 Range/Units 03:45 08:22 RBC 3.37 L (4.30-5.90) m/uL Hgb 9.7 L (13.0-17.5) gm/dL Hct 31.0 L (39.0-53.0) % RDW 15.7 H (11.5-15.5) % Chloride (98-107) mmol/L Glucose (74-99) mg/dL POC Glucose (mg/dL) 146 H (70-110) mg/dL Calcium (8.4-10.2) mg/dL Alkaline Phosphatase (38-126) U/L Total Protein (6.3-8.2) g/dL Albumin (3.5-5.0) g/dL Microbiology - Last 24 Hours (Table) 01/19/24 14:30 Gram Stain - Final Toe - Right First Wound Culture - Final Methicillin resist S. aureus Providencia alcalifaciens Strep agalactiae - (group b) 01/18/24 17:45 Blood Culture - Preliminary Blood 01/18/24 17:45 Blood Culture - Preliminary Blood 01/18/24 17:55 Gram Stain - Final Foot - Right Wound Culture - Final Methicillin resist S. aureus Strep agalactiae - (group b) Mariam albicans Assessment and Plan Assessment: 1. Infected right great toe toe diabetic wound status post amputation 2. Cellulitis 3. Diabetes mellitus with peripheral neuropathy Plan: 1. Patient is status post right first toe ray amputation 2. Daily wet-to-dry dressing change daily 3. Offload weight to right forefoot, heel walk only. Wear postop shoe when ambulating 4. Physical therapy on consultation appreciate their recommendations 5. Antibiotics per infectious disease Thank you for this consultation, patient is cleared for discharge from vascular surgery. The impression and plan of care has been dictated as directed. Dr. Navarro I performed a history and examination of this patient, discussed the same with the dictator. I agree with the dictator's note ,documented as a scribe. Any additional findings or plans will be noted.
--- NOTE | 2024-01-22 13:38 | CDI ---
Documentation Clarification Form Date: 01/22/2024 01:15:37 PM From: Nadiya Ennis RN, CCDS Email: [email or web address] Admit Date: 01/18/2024 06:22:00 PM Patient Name: Toro Butler Visit Number: [id number] Discharge Date: ATTENTION: The Clinical Documentation Specialists (CDI) and [facility] Coding Staff appreciate your assistance in clarifying documentation. Please respond to the clarification below the line at the bottom and electronically sign. The CDI & [facility] Coding staff will review the response and follow-up if needed. Please note: Queries are made part of the Legal Health Record. If you have any questions, please contact the author of this message via ITS. Dr. Alberto Hicks Cellulitis is documented and the patient has Diabetes with an infected right great toe. Additional clarification regarding the type of cellulitis is requested. History/risk factors: Type 2 DM with neuropathy, BPH and chronic ulcer to both feet, worse on the right. Presented with nonhealing ulcer in the base of first and second toe with drainage. Admitted with Infected right great toe diabetic wound status post amputation, Cellulitis, and Diabetes mellitus with peripheral neuropathy. Clinical Indicators: H&P: "Diabetic foot. Severe cellulitis of the foot without sepsis. Type 2 diabetes." 01/18 Surgery consult: "Infected right foot/toe diabetic wound. Cellulitis. Diabetes mellitus with peripheral neuropathy. Scheduled for debridement however likely right great toe amputation." 01/20 ID: MRSA. Diabetic foot infection. Treatment: 01/18 s/p right first toe ray amputation for nonhealing, infected diabetic foot wound; IV Vancomycin 1750mg Q12H 01/18-current; Aspart insulin BID 01/18-current; Metformin 1000mg po BID 01/18-current Please clarify the etiology of the cellulitis, if known: [xx ] Cellulitis is a diabetic skin complication [ ] Cellulitis is not a diabetic skin complication [ ] Other, please specify: [ ] Unable to determine MTDD
[2024-01-22] MEDS: CEFEPIME 2 GM in SODIUM CHLORIDE 0.9% 100 ML IVPB SCH (15:17)
[2024-01-22 17:19] LABS: Glucose,Whole Blood 180 mg/dL (70-110)
[2024-01-22 21:12] LABS: Glucose,Whole Blood 89 mg/dL (70-110)
--- NOTE | 2024-01-22 22:26 | P.PN ---
Subjective Progress Note Date: 01/22/24 Principal diagnosis: Reason for follow-up is extensive right diabetic foot infection and possible osteomyelitis Patient is a 63-year-old male with a past medical history of A-fib diabetes mellitus hypertension hyperlipidemia patient presenting to the ER for evaluation of wound on the plantar aspect of the right big toe which apparently has been there for almost 2 months patient has been diagnosed with extensive right diabetic foot infection in this patient who is status post right first toe ray amputation completed on 01/19/2024. On today's visit that is 01/22/2024, Patient is afebrile patient is currently on room air and denies having any shortness of breath, the patient denies any chest pain or cough, the patient denies any nausea vomiting did not have any abdominal pain and no diarrhea, P denies any worsening pain to the right big toe amputation site wound. Patient did have a white count of 9.7, creatinine 0.91 ESR was 99 CRP 24.4 local culture growing procidencia in addition to strep and MRSA Objective - Vital Signs Vital signs: Vital Signs Temp 98 F 01/22/24 08:00 Pulse 91 01/22/24 08:00 Resp 18 01/22/24 08:00 BP 131/67 01/22/24 08:00 Pulse Ox 98 01/22/24 08:00 FiO2 Intake & Output 01/21/24 01/22/24 01/22/24 18:59 06:59 18:59 Intake Total 118 Output Total 800 Balance -800 118 Intake: Oral 118 Output: Urine 800 Other: Voiding Method Urinal Urinal # Voids 2 - Exam GENERAL DESCRIPTION: Middle-age yuriy lying in bed in no distress RESPIRATORY SYSTEM: Unlabored breathing , decreased breath sounds at bases HEART: S1 S2 regular rate and rhythm , ABDOMEN: Soft , no tenderness EXTREMITIES: Right foot dressing change this morning by surgery did note mention wound looking better - Labs CBC & Chem 7: 01/22/24 03:45 01/22/24 03:45 Labs: Abnormal Lab Results - Last 24 Hours (Table) 01/21/24 01/21/24 01/22/24 Range/Units 12:33 20:53 03:45 RBC (4.30-5.90) m/uL Hgb (13.0-17.5) gm/dL Hct (39.0-53.0) % RDW (11.5-15.5) % Chloride 111 H (98-107) mmol/L Glucose 105 H (74-99) mg/dL POC Glucose (mg/dL) 168 H 121 H (70-110) mg/dL Calcium 7.9 L (8.4-10.2) mg/dL Alkaline Phosphatase 147 H (38-126) U/L Total Protein 5.1 L (6.3-8.2) g/dL Albumin 2.4 L (3.5-5.0) g/dL 01/22/24 01/22/24 01/22/24 Range/Units 03:45 08:22 12:07 RBC 3.37 L (4.30-5.90) m/uL Hgb 9.7 L (13.0-17.5) gm/dL Hct 31.0 L (39.0-53.0) % RDW 15.7 H (11.5-15.5) % Chloride (98-107) mmol/L Glucose (74-99) mg/dL POC Glucose (mg/dL) 146 H 175 H (70-110) mg/dL Calcium (8.4-10.2) mg/dL Alkaline Phosphatase (38-126) U/L Total Protein (6.3-8.2) g/dL Albumin (3.5-5.0) g/dL Microbiology - Last 24 Hours (Table) 01/19/24 14:30 Gram Stain - Final Toe - Right First Wound Culture - Final Methicillin resist S. aureus Providencia alcalifaciens Strep agalactiae - (group b) 01/18/24 17:45 Blood Culture - Preliminary Blood 01/18/24 17:45 Blood Culture - Preliminary Blood 01/18/24 17:55 Gram Stain - Final Foot - Right Wound Culture - Final Methicillin resist S. aureus Strep agalactiae - (group b) Mariam albicans Assessment and Plan (1) MRSA (methicillin resistant staph aureus) culture positive Current Visit: Yes Status: Acute Code(s): Z22.322 - CARRIER OR SUSPECTED CA RRIER OF METHICILLIN RESIS STAPH SNOMED Code(s): 212136467 (2) Diabetic foot infection Current Visit: Yes Status: Acute Code(s): E11.628 - TYPE 2 DIABETES MELLITUS WITH OTHER SKIN COMPLICATIONS; L08.9 - LOCAL INFECTION OF THE SKIN AND SUBCUTANEOUS TISSUE, UNSP SNOMED Code(s): 527254595 (3) Type 2 diabetes mellitus with foot ulcer Current Visit: Yes Status: Acute Code(s): E11.621 - TYPE 2 DIABETES MELLITUS WITH FOOT ULCER; L97.509 - NON-PRESSURE CHRONIC ULCER OTH PRT UNSP FOOT W UNSP SEVERITY SNOMED Code(s): 816620243 Plan: 1-patient presented to hospital with extensive wound to the right foot and this patient did have significant swelling of the right big toe with the wound on the plantar aspect concerning for osteomyelitis and will need to cover for the polymicrobial master usually associated with diabetic foot infection 2-patient is status post right first ray amputation and deep culture initial culture growing strep, MRSA and Providencia 3-patient to continue the vancomycin and oral Flagyl we will add cefepime to cover for the providencia currently waiting for the PICC line for outpatient IV antibiotic therapy Dictation was produced using [employer] dictation software. please excuse any grammatical, word or spelling errors. Time with Patient: Less than 30
--- NOTE | 2024-01-23 03:15 | P.PN ---
Subjective Progress Note Date: 01/22/24 HISTORY OF PRESENT ILLNESS: 63-year-old male 89 office patient with past medical history of type 2 diabetes, Chronic edema, hyperlipidemia, BPH, chronic pain syndrome, chronic neuropathy and recurrent pressure ulcer both feet worse on the right on the left side which patient apparently had for the last 2 to 3 weeks he missed few appointment in the office last few months patient presented to the office today with concern about nonhealing ulcer in the base of the first and second toe involving the lower area with significant drainage and harsh callus with an open significant smelly drain. Checking on it in the office felt the area might be involving the bone and might have osteomyelitis the smell significant similar to what we see with Pseudomonas. Patient was sent to the emergency department to be study x-ray of the foot initially showed no suspicious changes suggestive of osteomyelitis but wound at all ball of the foot plantar aspect with diffuse soft tissue swelling. Laboratory value with white blood cell 13,400 hemoglobin 11 hematocrit 33 mostly neutrophil differential. Electrolytes showed hyponatremia with sodium at 133 significant abnormal liver function test, C-reactive protein was 24.4 with lactic acid 2.2 and calcium 8.2 with creatinine at 0.9. Slight reactive alkaline phosphatase at 155. With the severity of his symptoms was started on vancomycin along with Zosyn will continue Vanco dosed by pharmacy admit patient to the hospital to be seen by infectious disease and probably vascular. Culture of the probe on the blood close normal also defibrillator was done and to follow in the next few days. 01/20/2024: Patient is doing slightly better and is going for surgery to amputate the first right total because of osteomyelitis involvement. This culture was positive for MRSA he will be continued on vancomycin for now. Infectious disease consultation on the finalized antibiotics also patient seen wound care will require wound care after he is discharged from the hospital. Is sitting in a chair today taking a sponge bath feeling well his pain is under control, blood sugar slightly bit better will adjust his medication to keep his blood sugar under 150. 01/21/2024: Doing better so far the right first toe amputated site looks fine still oozing slightly. Culture came back positive for MRSA we will continue vancomycin not quite to be on it for at least 2 to 3 weeks BiV and then oral medication. As for Unasyn was stopped will add Flagyl to his regime for now for anaerobic coverage PICC line to be scheduled for tomorrow probably patient be doing outpatient antibiotic IV management. 01/22/2024: Incision on his amputated big toe looks much better so far. He is to continue on IV antibiotics along with oral Flagyl seen infectious disease arrangement for outpatient infusion will be made patient is going to have his PICC line today. Pain is slightly better at this point and blood sugar is much better and under control. REVIEW OF SYSTEMS: CONSTITUTIONAL: Well-developed no acute respiratory distress. EYES: No icterus sclerae, no conjunctivitis. EARS, NOSE, MOUTH, THROAT, and FACE: No sore throat, lymphadenopathy, carotid bruits or deformity. RESPIRATORY: No SOB cough or wheezes. CARDIOVASCULAR: But positive Palpitation, PND, Orthopnea, no angina. GASTROINTESTINAL: No Abd pain, Nausea or vomiting, no Diarrhea or constipation, No GI Bleed, no distention or masses. GENITOURINARY: Negative for Hematuria or UTI, no kidney stones. Decreased urine output. INTEGUMENT/BREAST: Negative for any muscular injury with mild osteoarthritis.. HEMATOLOGIC/LYMPHATIC: Negative for bleed or purpura. MUSCULOSKELTAL: Negative for Myalgia or arthralgia. Significant ulcerated area between first second and third toe involving the big bulk of the arch area NEURLOGICAL: No LOC, Sz or syncope, blurred vision dizziness or abnormality.. BEHAVIORAL/PSYCH: Negative. ENDOCRINE: Negative. PHYSICAL EXAMINATION: General Appearance: Alert, cooperative, no distress, slightly overweight and looks older than his age. Neck HEENT: Supple, no lymphadenopathy, no thyroid enlargement, no carotid bruits. Lungs: Decreased expansion with inspiration positive for rhonchi no crackles. Chest Wall: Decreased expansion with deep inspiration no tenderness and no deformity was found on exam, no costochondral pain or discomfort. Heart: Regular rate and rhythm, S1, S2 normal, no murmur, rub or gallop. Back: Symmetric, no curvature, ROM normal, no CVA tenderness. Abdomen: Soft, non-tender, bowel sounds active all four quadrants, no masses, no organomegaly. Extremities: Extremities normal, atraumatic, no cyanosis positive significant edema, right foot and open ulcer area started from in between first and second toe and spread to bottom part of his foot involving deeper area with significant drainage decreased pulse and dorsalis pedis posterior tibial. Pulses: 2+ and symmetric. Skin: Skin color, texture, tugor normal, no rashes or lesions. Neurologic: Alert oriented x3 cranial nerves II through XII intact, no motor deficit, no abnormal balance or gait. ASSESSMENT AND PLAN: _Diabetic foot: With MRSA post amputation of the right big toe off Unasyn will continue vancomycin and add Flagyl. Along with cefepime IV. _Severe cellulitis of the right foot with involvement of the bone post amputation of right big toe which will help to clear him a lot faster this way specially with IV antibiotics. _Osteomyelitis of the right big toe, post amputation continue postsurgical care. Will be on IV antibiotic for at least 2 to 3 weeks. _Type 2 diabetes: Has been on Victoza 1.8 mg subcutaneous daily along with metformin 1000 g twice a day, continue Accu-Chek with sliding scale coverage random blood sugar running below 150. _Hyperlipidemia: Continue atorvastatin 40 mg a day. _Chronic neuropathy, has been on gabapentin 600 mg 3 times a day. _Hypertension: Still on lisinopril 5 mg a day titrate dose higher and add calciu m channel darlyn if needed. _Chronic edema: Remain on furosemide 20 mg daily. _Restless leg syndrome: Remain on ropinirole 3 mg at bedtime. _Chronic pain syndrome: Remain on hydrocodone 7.5 mg every 6-8 hours as needed. Patient seem to tolerate it very well. Planning: PICC line rescheduled for today probably IV antibiotic will be continued for total of 2 to 3 weeks. Arrangement for IV antibiotic will be made by infectious disease. Hopefully the plan to see if patient can be discharged home tomorrow. Objective - Vital Signs Vital signs: Vital Signs Temp 98.3 F 01/23/24 01:49 Pulse 83 01/23/24 01:49 Resp 16 01/22/24 19:17 BP 116/74 01/23/24 01:49 Pulse Ox 96 01/23/24 01:49 FiO2 Intake & Output 01/22/24 01/22/24 01/23/24 06:59 18:59 06:59 Intake Total 236 Output Total 1100 850 Balance -864 -850 Intake: Oral 236 Output: Urine 1100 850 Other: Voiding Method Urinal Urinal # Voids 2 2 - Labs CBC & Chem 7: 01/22/24 03:45 01/22/24 03:45 Labs: Abnormal Lab Results - Last 24 Hours (Table) 01/22/24 01/22/24 01/22/24 Range/Units 03:45 03:45 08:22 RBC 3.37 L (4.30-5.90) m/uL Hgb 9.7 L (13.0-17.5) gm/dL Hct 31.0 L (39.0-53.0) % RDW 15.7 H (11.5-15.5) % Chloride 111 H (98-107) mmol/L Glucose 105 H (74-99) mg/dL POC Glucose (mg/dL) 146 H (70-110) mg/dL Calcium 7.9 L (8.4-10.2) mg/dL Alkaline Phosphatase 147 H (38-126) U/L Total Protein 5.1 L (6.3-8.2) g/dL Albumin 2.4 L (3.5-5.0) g/dL 01/22/24 01/22/24 Range/Units 12:07 17:18 RBC (4.30-5.90) m/uL Hgb (13.0-17.5) gm/dL Hct (39.0-53.0) % RDW (11.5-15.5) % Chloride (98-107) mmol/L Glucose (74-99) mg/dL POC Glucose (mg/dL) 175 H 180 H (70-110) mg/dL Calcium (8.4-10.2) mg/dL Alkaline Phosphatase (38-126) U/L Total Protein (6.3-8.2) g/dL Albumin (3.5-5.0) g/dL Microbiology - Last 24 Hours (Table) 01/19/24 14:30 Gram Stain - Final Toe - Right First Wound Culture - Final Methicillin resist S. aureus Providencia alcalifaciens Strep agalactiae - (group b) 01/18/24 17:45 Blood Culture - Preliminary Blood 01/18/24 17:45 Blood Culture - Preliminary Blood
[2024-01-23 06:23] LABS: Glucose,Whole Blood 124 mg/dL (70-110)
[2024-01-23] MEDS: IV FLUID CONTINUATION 1,000 ML IV ONE (08:12)
[2024-01-23] MEDS: LIDOCAINE 1% INJ 10MG/ML (20 ML MDV) SQ ONE (08:20)
--- NOTE | 2024-01-23 08:29 | P.PCN ---
Date of Procedure: 01/23/24 Preoperative Diagnosis: Gangrene right great toe s/p amputation Need for parts counterman antibiotics Postoperative Diagnosis: Same Procedure(s) Performed: Left basilic vein PICC placement under ultrasound and fluoroscopic guidance Anesthesia: local Surgeon: Scottie Navarro Estimated Blood Loss (ml): 2 Pathology: none sent Disposition: floor Description of Procedure: After written and informed consent was obtained the patient and all risks, benefits and competitions were described the patient was brought to the Services Engineer and laid in a supine position with his left arm outstretched on an armboard. The area of the left arm was prepped and draped in usual sterile fashion. Timeout was performed in normal fashion. Utilizing ultrasound the basilic vein was visualized and shown to be compressible without any visible thrombus. Under ultrasound guidance the basilic vein was then cannulated with a micropuncture needle and wire was placed under direct visualization of fluoroscopy. Introducer sheath was then placed. The catheter was measured and cut to the appropriate length which was 50 cm. The catheter was then guided through the breakaway sheath and the sheath was removed with good positioning was visualized under fluoroscopy. The catheter was pulled and flushed easily. It was then secured in place in normal fashion. Patient tolerated the procedure well was sent back to his room for recovery.
[2024-01-23 10:03] LABS: African American GFR (CKD) >90 (>60 ml/min/1.73 sqM); Non-African American GFR(CKD) >90 (>60 ml/min/1.73 sqM)
--- NOTE | 2024-01-23 12:10 | IR ---
EXAMINATION TYPE: IR cvc insert >=5 years DATE OF EXAM: 01/23/2024 FLUOROSCOPY Left PICC line placement for ABX, 50CM, LEFT BASILLIC, 1.8 MINS, 5.56 GYCM2. 71 images provided.
[2024-01-23 12:14] LABS: Glucose,Whole Blood 75 mg/dL (70-110)
--- NOTE | 2024-01-23 15:28 | P.PN ---
Subjective Progress Note Date: 01/23/24 Principal diagnosis: Reason for follow-up is extensive right diabetic foot infection and possible osteomyelitis Patient is a 63-year-old male with a past medical history of A-fib diabetes mellitus hypertension hyperlipidemia patient presenting to the ER for evaluation of wound on the plantar aspect of the right big toe which apparently has been there for almost 2 months patient has been diagnosed with extensive right diabetic foot infection in this patient who is status post right first toe ray amputation completed on 01/19/2024. On today's visit that is 01/23/2024,the patient denies any fever or any chills, patient is breathing comfortably on room air, the patient denies chest pain shortness of breath and no significant cough, patient denies abdominal pain, no nausea vomiting or diarrhea denies any worsening pain to the right foot/toe amputation site. Patient creatinine 0.83 Vanco trough is 19.3 Objective - Vital Signs Vital signs: Vital Signs Temp 98.3 F 01/23/24 08:00 Pulse 82 01/23/24 08:00 Resp 18 01/23/24 08:00 BP 123/73 01/23/24 08:00 Pulse Ox 96 01/23/24 08:00 FiO2 Intake & Output 01/22/24 01/23/24 01/23/24 18:59 06:59 18:59 Intake Total 236 240 Output Total 1100 850 400 Balance -864 -850 -160 Intake: Oral 236 240 Output: Urine 1100 850 400 Other: Voiding Method Urinal Urinal # Voids 2 400 - Exam GENERAL DESCRIPTION: Middle-age yuriy lying in bed in no distress RESPIRATORY SYSTEM: Unlabored breathing , decreased breath sounds at bases HEART: S1 S2 regular rate and rhythm , ABDOMEN: Soft , no tenderness EXTREMITIES: Right foot dressing change this morning by surgery did note mention wound looking better - Labs CBC & Chem 7: 01/22/24 03:45 01/23/24 09:13 Labs: Abnormal Lab Results - Last 24 Hours (Table) 01/22/24 01/22/24 01/23/24 Range/Units 12:07 17:18 06:21 POC Glucose (mg/dL) 175 H 180 H 124 H (70-110) mg/dL Microbiology - Last 24 Hours (Table) 01/19/24 14:30 Gram Stain - Final Toe - Right First Wound Culture - Final Methicillin resist S. aureus Providencia alcalifaciens Strep agalactiae - (group b) Assessment and Plan (1) MRSA (methicillin resistant staph aureus) culture positive Current Visit: Yes Status: Acute Code(s): Z22.322 - CARRIER OR SUSPECTED CARRIER OF METHICILLIN RESIS STAPH SNOMED Code(s): 295326466 (2) Diabetic foot infection Current Visit: Yes Status: Acute Code(s): E11.628 - TYPE 2 DIABETES MELLITUS WITH OTHER SKIN COMPLICATIONS; L08.9 - LOCAL INFECTION OF THE SKIN AND SUBCUTANEOUS TISSUE, UNSP SNOMED Code(s): 507647389 (3) Type 2 diabetes mellitus with foot ulcer Current Visit: Yes Status: Acute Code(s): E11.621 - TYPE 2 DIABETES MELLITUS WITH FOOT ULCER; L97.509 - NON-PRESSURE CHRONIC ULCER OTH PRT UNSP FOOT W UNSP SEVERITY SNOMED Code(s): 660284167 Plan: 1-patient presented to hospital with extensive wound to the right foot and this patient did have significant swelling of the right big toe with the wound on the plantar aspect concerning for osteomyelitis and will need to cover for the polymicrobial master usually associated with diabetic foot infection 2-patient is status post right first ray amputation and deep culture initial culture growing strep, MRSA and Providencia 3-patient did get a PICC line he is currently on cefepime vancomycin and Flagyl to continue if the patient has to go to infusion clinic, daily dose of antibiotic will be the form of daptomycin and Invanz total duration is 6 weeks Dictation was produced using [employer] dictation software. please excuse any grammatical, word or spelling errors. Time with Patient: Less than 30
[2024-01-23 17:22] LABS: Glucose,Whole Blood 135 mg/dL (70-110)
[2024-01-23 20:29] LABS: Glucose,Whole Blood 138 mg/dL (70-110)
[2024-01-24 07:41] LABS: African American GFR (CKD) >90 (>60 ml/min/1.73 sqM); Non-African American GFR(CKD) >90 (>60 ml/min/1.73 sqM)
--- NOTE | 2024-01-24 08:20 | P.DS ---
Providers Date of admission: 01/18/24 18:22 HISTORY OF PRESENT ILLNESS: 63-year-old male 89 office patient with past medical history of type 2 diabetes, Chronic edema, hyperlipidemia, BPH, chronic pain syndrome, chronic neuropathy and recurrent pressure ulcer both feet worse on the right on the left side which patient apparently had for the last 2 to 3 weeks he missed few appointment in the office last few months patient presented to the office today with concern about nonhealing ulcer in the base of the first and second toe involving the lower area with significant drainage and harsh callus with an open significant smelly drain. Checking on it in the office felt the area might be involving the bone and might have osteomyelitis the smell significant similar to what we see with Pseudomonas. Patient was sent to the emergency department to be study x-ray of the foot initially showed no suspicious changes suggestive of osteomyelitis but wound at all ball of the foot plantar aspect with diffuse soft tissue swelling. Laboratory value with white blood cell 13,400 hemoglobin 11 hematocrit 33 mostly neutrophil differential. Electrolytes showed hyponatremia with sodium at 133 significant abnormal liver function test, C-reactive protein was 24.4 with lactic acid 2.2 and calcium 8.2 with creatinine at 0.9. Slight reactive alkaline phosphatase at 155. With the severity of his symptoms was started on vancomycin along with Zosyn will continue Vanco dosed by pharmacy admit patient to the hospital to be seen by infectious disease and probably vascular. Culture of the probe on the blood close normal also defibrillator was done and to follow in the next few days. 01/20/2024: Patient is doing slightly better and is going for surgery to amputate the first right total because of osteomyelitis involvement. This culture was positive for MRSA he will be continued on vancomycin for now. Infectious disease consultation on the finalized antibiotics also patient seen wound care will require wound care after he is discharged from the hospital. Is sitting in a chair today taking a sponge bath feeling well his pain is under control, blood sugar slightly bit better will adjust his medication to keep his blood sugar under 150. 01/21/2024: Doing better so far the right first toe amputated site looks fine still oozing slightly. Culture came back positive for MRSA we will continue vancomycin not quite to be on it for at least 2 to 3 weeks BiV and then oral medication. As for Unasyn was stopped will add Flagyl to his regime for now for anaerobic coverage PICC line to be scheduled for tomorrow probably patient be doing outpatient antibiotic IV management. 01/22/2024: Incision on his amputated big toe looks much better so far. He is to continue on IV antibiotics along with oral Flagyl seen infectious disease arrangement for outpatient infusion will be made patient is going to have his PICC line today. Pain is slightly better at this point and blood sugar is much better and under control. 01/23/2024: Patient PICC line was delay till today, he is doing well his ant ibiotics still debatable to be done at home or outpatient infusion, vp digital marketing social media and crm is working with the ID to finalize a final detail if it does he might be discharged today if not he might be staying till tomorrow. Patient is doing well otherwise not having any pain no bleeding from the surgical site is clear. REVIEW OF SYSTEMS: CONSTITUTIONAL: Well-developed no acute respiratory distress. EYES: No icterus sclerae, no conjunctivitis. EARS, NOSE, MOUTH, THROAT, and FACE: No sore throat, lymphadenopathy, carotid bruits or deformity. RESPIRATORY: No SOB cough or wheezes. CARDIOVASCULAR: But positive Palpitation, PND, Orthopnea, no angina. GASTROINTESTINAL: No Abd pain, Nausea or vomiting, no Diarrhea or constipation, No GI Bleed, no distention or masses. GENITOURINARY: Negative for Hematuria or UTI, no kidney stones. Decreased urine output. INTEGUMENT/BREAST: Negative for any muscular injury with mild osteoarthritis.. HEMATOLOGIC/LYMPHATIC: Negative for bleed or purpura. MUSCULOSKELTAL: Negative for Myalgia or arthralgia. Significant ulcerated area between first second and third toe involving the big bulk of the arch area NEURLOGICAL: No LOC, Sz or syncope, blurred vision dizziness or abnormality.. BEHAVIORAL/PSYCH: Negative. ENDOCRINE: Negative. PHYSICAL EXAMINATION: General Appearance: Alert, cooperative, no distress, slightly overweight and looks older than his age. Neck HEENT: Supple, no lymphadenopathy, no thyroid enlargement, no carotid bruits. Lungs: Decreased expansion with inspiration positive for rhonchi no crackles. Chest Wall: Decreased expansion with deep inspiration no tenderness and no deformity was found on exam, no costochondral pain or discomfort. Heart: Regular rate and rhythm, S1, S2 normal, no murmur, rub or gallop. Back: Symmetric, no curvature, ROM normal, no CVA tenderness. Abdomen: Soft, non-tender, bowel sounds active all four quadrants, no masses, no organomegaly. Extremities: Extremities normal, atraumatic, no cyanosis positive significant edema, right foot and open ulcer area started from in between first and second toe and spread to bottom part of his foot involving deeper area with significant drainage decreased pulse and dorsalis pedis posterior tibial. Pulses: 2+ and symmetric. Skin: Skin color, texture, tugor normal, no rashes or lesions. Neurologic: Alert oriented x3 cranial nerves II through XII intact, no motor deficit, no abnormal balance or gait. ASSESSMENT AND PLAN: _Diabetic foot: With MRSA post amputation of the right big toe off Unasyn will continue vancomycin and add Flagyl. Along with cefepime IV. _Severe cellulitis of the right foot with involvement of the bone post amputation of right big toe which will help to clear him a lot faster this way specially with IV antibiotics. _Osteomyelitis of the right big toe, post amputation continue postsurgical care. Will be on IV antibiotic for at least 2 to 3 weeks. _Type 2 diabetes: Has been on Victoza 1.8 mg subcutaneous daily along with metformin 1000 g twice a day, continue Accu-Chek with sliding scale coverage random blood sugar running below 150. _Hyperlipidemia: Continue atorvastatin 40 mg a day. _Chronic neuropathy, has been on gabapentin 600 mg 3 times a day. _Hypertension: Still on lisinopril 5 mg a day titrate dose higher and add calcium channel darlyn if needed. _Chronic edema: Remain on furosemide 20 mg daily. _Restless leg syndrome: Remain on ropinirole 3 mg at bedtime. _Chronic pain syndrome: Remain on hydrocodone 7.5 mg every 6-8 hours as needed. Patient seem to tolerate it very well. Hospital course: Patient was hospitalized ended up having right big toe amputated discontinue on IV antibiotics initially with Unasyn and vancomycin and then changed to vancomycin cefepime and Flagyl. The patient has seen infectious disease and vascular. He has done well since the patient osteomyelitis and post care done very well. PICC line was placed yesterday and patient will be going home on IV antibiotics for total of 2 to 3 weeks extended per recommendation with infectious disease. Expected discharge will be on 01-24-2024. Time spent on discharging patient was more than 35 minutes. Attending physician: Alberto Hicks Consults: 01/18/24 18:18 Consult Physician Urgent Consulting Provider: Toni Matias Consult Reason/Comments: advanced foot wound Do you want consulting provider notified?: Yes Consult Physician Urgent Consulting Provider: Kristi Downing Consult Reason/Comments: Cellulitis, diabetic foot infection Do you want consulting provider notified?: Yes Primary care physician: Alberto Hicks Patient Condition at Discharge: Serious Plan - Discharge Summary New Discharge Prescriptions: New Loperamide [Imodium] 2 mg PO Q8HR PRN #30 cap PRN Reason: Diarrhea Cefepime [Maxipime] 2 gm IVPB Q8HR each metroNIDAZOLE [Flagyl] 500 mg PO TID #90 tab HYDROcodone/APAP 5-325MG [[place] 5-325] 1 each PO Q4HR PRN #30 tab PRN Reason: Moderate Pain (Scale 4 To 6) Vancomycin 1,750 mg IVPB Q12H each Continue Tamsulosin HCl [Flomax] 0.4 mg PO BID@0800,1700 Hydrocodone/Acetaminophen [[place] 7.5-325] 1 tab PO Q8H PRN PRN Reason: Pain Gabapentin [Neurontin] 600 mg PO TID@0800,1700,2200 metFORMIN HCL [Glucophage] 1,000 mg PO BID-W/MEALS@ lisinopriL [Zestril] 5 mg PO DAILY@0800 Erythromycin Ophth Oint [Romycin Ophth Oint] 1 applic BOTH EYES DIRECTED Furosemide [Lasix] 20 mg PO DAILY@0800 oxyBUTYnin chloride [Ditropan] 5 mg PO BID@0800,1700 rOPINIRole HCL [Requip] 3 mg PO HS@2200 Atorvastatin [Lipitor] 40 mg PO HS@2200 Finasteride [Proscar] 5 mg PO DAILY@0800 Insulin Aspart Prot/Insuln Asp [NovoLOG MIX 70-30 Flexpen] 54 unit SQ BID Liraglutide [Victoza 3-Narendra] 1.8 mg SQ DAILY Discharge Medication List Gabapentin [Neurontin] 600 mg PO TID@0800,1700,2200 06/30/19 [History] Hydrocodone/Acetaminophen [[place] 7.5-325] 1 tab PO Q8H PRN 06/30/19 [History] Tamsulosin HCl [Flomax] 0.4 mg PO BID@0800,1700 06/30/19 [History] lisinopriL [Zestril] 5 mg PO DAILY@0806/30/19 [History] metFORMIN HCL [Glucophage] 1,000 mg PO BID-W/MEALS@,06/30/19 [History] Atorvastatin [Lipitor] 40 mg PO HS@219901/18/24 [History] Erythromycin Ophth Oint [Romycin Ophth Oint] 1 applic BOTH EYES DIRECTED 01/18/24 [History] Finasteride [Proscar] 5 mg PO DAILY@0801/18/24 [History] Furosemide [Lasix] 20 mg PO DAILY@0801/18/24 [History] Insulin Aspart Prot/Insuln Asp [NovoLOG MIX 70-30 Flexpen] 54 unit SQ BID 01/18/24 [History] Liraglutide [Victoza 3-Narendra] 1.8 mg SQ DAILY 01/18/24 [History] oxyBUTYnin chloride [Ditropan] 5 mg PO BID@0800,1700 01/18/24 [History] rOPINIRole HCL [Requip] 3 mg PO HS@219901/18/24 [History] Cefepime [Maxipime] 2 gm IVPB Q8HR each 01/23/24 [Rx] HYDROcodone/APAP 5-325MG [[place] 5-325] 1 each PO Q4HR PRN #30 tab 01/23/24 [Rx] Loperamide [Imodium] 2 mg PO Q8HR PRN #30 cap 01/23/24 [Rx] Vancomycin 1,750 mg IVPB Q12H each 01/23/24 [Rx] metroNIDAZOLE [Flagyl] 500 mg PO TID #90 tab 01/24/24 [Rx] Follow up Appointment(s)/Referral(s): Alberto Hicks MD [Primary Care Provider] - 1-2 days [facility] [NON-STAFF] - As Needed Kaley Jo DO [STAFF PHYSICIAN] - 1 Week [facility], [REFERRING] - 01/24/24 5:00 pm [facility] [NON-STAFF] - 01/29/24 8:00 am [facility] [NON-STAFF] - 01/25/24 8:00 am Kristi Downing MD [STAFF PHYSICIAN] - 1 Week Patient Instructions/Handouts: Wound Infection (GEN), Wound Healing and Your Diet (DC), Diabetic Foot Ulcers (DC), Toe Amputation (GEN) Activity/Diet/Wound Care/Special Instructions: Offload weight to right forefoot, heel walk only. Wear postop shoe when ambulating Daily wet-to-dry dressing change with 4 x 4 gauze packing, 4 x 4 dressing and Kerlix secured with tape Discharge Disposition: HOME WITH HOME HEALTH SERVICES
[2024-01-24 08:51] LABS: Glucose,Whole Blood 114 mg/dL (70-110)
[2024-01-24 09:17] VITALS: RESP 18; TEMP 98
--- NOTE | 2024-01-24 09:39 | P.PN ---
Subjective Progress Note Date: 01/24/24 This is a pleasant 63-year-old male with a history of diabetes mellitus with peripheral neuropathy and a wound to his right foot and great toe that has been there for at least the last 2 months duration. He states it started out as a callus on the bottom of his foot. He states that he has been caring for the wound himself at home, he has not seen a physician for it. States it started swelling and getting red about 2 weeks ago. Patient went to his primary care provider yesterday and was sent to the ER for evaluation. States also started to have significant amount of drainage and foul odor. X-ray reports no osteomyelitis. Right great toe shows remodeling related to infection. He is scheduled for amputation possible negative pressure wound VAC to be applied. 01/24/2024: Patient was reevaluated post amputation of the right great toe. Patient had a wet-to-dry dressing in place. Ulceration measures approximately 2.5 x 4 x 4 cm granulation noted within the wound bed. Slough and nonviable tissue present. Sutures present to the medial aspect of the foot. Serous drainage noted. Moderate amount. Patient tolerating dressings. Review Of Systems: Constitutional: No fever, no chills, no night sweats. No weight change. No weakness, fatigue or lethargy. No daytime sleepiness. Integumentary:reports wounds, no lesions. No rash or pruritus. No unusual bruising. No change in hair or nails. Physical exam: General Appearance: Alert, cooperative, no distress, appears stated age. Skin: See HPI all other Skin color, texture, tugor normal, no rashes or lesions. Neurologic: Alert oriented x3 Assessment: 1. Nonhealing ulceration with bone necrosis right great toe 2. Diabetic foot ulcer Plan: 1. Apply absorptive silver rope to the site until negative pressure wound VAC is available. Apply negative pressure wound VAC in outpatient setting. At 125 mmHg continuous pressure. Utilize black foam. Patient to be seen in the wound care center next week. Thank you for the consultation any questions please contact the wound care center DNP note has been reviewed and discussed with Dr. Ramirez and the impression and plan of care has been directed as dictated. Objective - Vital Signs Vital signs: Vital Signs Temp 98 F 01/24/24 08:00 Pulse 77 01/24/24 08:00 Resp 18 01/24/24 08:00 BP 106/67 01/24/24 08:00 Pulse Ox 97 01/24/24 08:00 FiO2 Intake & Output 01/23/24 01/24/24 01/24/24 18:59 06:59 18:59 Intake Total 480 Output Total 1100 200 Balance -620 -200 Intake: Oral 480 Output: Urine 1100 200 Other: Voiding Method Urinal # Voids 1 3 # Bowel Movements 1 2 - Labs CBC & Chem 7: 01/22/24 03:45 01/24/24 07:01 Labs: Abnormal Lab Results - Last 24 Hours (Table) 01/23/24 01/23/24 01/24/24 Range/Units 17:04 20:28 08:50 POC Glucose (mg/dL) 135 H 138 H 114 H (70-110) mg/dL Microbiology - Last 24 Hours (Table) 01/18/24 17:45 Blood Culture - Final Blood 01/18/24 17:45 Blood Culture - Final Blood 01/19/24 14:30 Anaerobic Culture - Preliminary Toe - Right First Anaerobic Gm Negative Bacilli Assessment and Plan (1) Non-pressure chronic ulcer of other part of right foot with necrosis of bone Current Visit: Yes Status: Acute Code(s): L97.514 - NON-PRS CHRONIC ULCER OTH PRT RIGHT FOOT W NECROSIS OF BONE SNOMED Code(s): 55830139733461233 (2) Type 2 diabetes mellitus with foot ulcer Current Visit: Yes Status: Acute Code(s): E11.621 - TYPE 2 DIABETES MELLITUS WITH FOOT ULCER; L97.509 - NON-PRESSURE CHRONIC ULCER OTH PRT UNSP FOOT W UNSP SEVERITY SNOMED Code(s): 937604803
--- NOTE | 2024-01-24 10:46 | P.PN ---
Subjective Progress Note Date: 01/24/24 Principal diagnosis: Infected great toe wound Patient is seen and examined today as a follow-up. He states dressing was just changed this morning. Pain has been well-managed. Physical therapy has worked with him. He has been afebrile. He has a PICC line in the left upper ex tremity. Objective - Vital Signs Vital signs: Vital Signs Temp 98 F 01/24/24 08:00 Pulse 77 01/24/24 08:00 Resp 18 01/24/24 08:00 BP 106/67 01/24/24 08:00 Pulse Ox 97 01/24/24 08:00 FiO2 Intake & Output 01/23/24 01/24/24 01/24/24 18:59 06:59 18:59 Intake Total 480 Output Total 1100 200 Balance -620 -200 Intake: Oral 480 Output: Urine 1100 200 Other: Voiding Method Urinal # Voids 1 3 # Bowel Movements 1 2 - Exam General appearance: The patient is alert, oriented, appears in no acute distress. Obese. HET: Head is normocephalic and atraumatic. Pupils are equal and reactive. Neck: Supple. Abdomen: Soft, nondistended. Extremities: Right lower extremity swelling, dressing clean dry and intact. Neurological: No focal deficits. - Labs CBC & Chem 7: 01/22/24 03:45 01/24/24 07:01 Labs: Abnormal Lab Results - Last 24 Hours (Table) 01/23/24 01/23/24 01/24/24 Range/Units 17:04 20:28 08:50 POC Glucose (mg/dL) 135 H 138 H 114 H (70-110) mg/dL Microbiology - Last 24 Hours (Table) 01/18/24 17:45 Blood Culture - Final Blood 01/18/24 17:45 Blood Culture - Final Blood 01/19/24 14:30 Anaerobic Culture - Preliminary Toe - Right First Anaerobic Gm Negative Bacilli Assessment and Plan Assessment: 1. Infected right great toe toe diabetic wound status post amputation 2. Cellulitis 3. Diabetes mellitus with peripheral neuropathy Plan: 1. Patient is status post right first toe ray amputation 2. Local wound care per recommendations from wound care clinic, with recommendations to apply negative pressure wound VAC in outpatient setting. Patient to follow-up with wound care clinic after discharge. 3. Offload weight to right forefoot, heel walk only. Wear postop shoe when ambulating 4. Physical therapy on consultation appreciate their recommendations 5. Antibiotics per infectious disease Thank you for this consultation, patient is cleared for discharge from vascular surgery. The impression and plan of care has been dictated as directed. Dr. Jo I performed a history and examination of this patient, discussed the same with the dictator. I agree with the dictator's note ,documented as a scribe. Any additional findings or plans will be noted.
[2024-01-24 11:54] LABS: Glucose,Whole Blood 148 mg/dL (70-110)
[2024-01-24 12:13] VITALS: BMI 34.4
[2024-01-24 15:05] VITALS: BP 129/64; PULSE 86
== END 2024-01-24 16:36 | disposition home health service (06) | DRG 617 ==
LOC: EC 15:26 → 5NMEDONC 18:22 → 6NMEDSUR 01-19 07:57
PROVIDERS: ADMIT Internal Medicine Geriatric Medicine; ATTEND Internal Medicine Geriatric Medicine
PROC: 0Y6P0Z0 Detachment at Right 1st Toe, Complete, Open Approach (ICD-10-PCS; principal; 2024-01-19 15:00)
PROC: 02HV33Z Insertion of Infusion Device into Superior Vena Cava, Percutaneous Approach (ICD-10-PCS; 2024-01-23)
DX: E11.621 Type 2 diabetes mellitus with foot ulcer (principal); E11.52 Type 2 diabetes mellitus with diabetic peripheral angiopathy with gangrene; E87.1 Hypo-osmolality and hyponatremia; L03.115 Cellulitis of right lower limb; E11.628 Type 2 diabetes mellitus with other skin complications; B95.62 Methicillin resistant Staphylococcus aureus infection as the cause of diseases classified elsewhere; E11.42 Type 2 diabetes mellitus with diabetic polyneuropathy; E11.649 Type 2 diabetes mellitus with hypoglycemia without coma; E78.5 Hyperlipidemia, unspecified; G25.81 Restless legs syndrome; G89.4 Chronic pain syndrome; I10 Essential (primary) hypertension; I48.91 Unspecified atrial fibrillation; L97.514 Non-pressure chronic ulcer of other part of right foot with necrosis of bone; N40.0 Benign prostatic hyperplasia without lower urinary tract symptoms; Z79.4 Long term (current) use of insulin; Z79.84 Long term (current) use of oral hypoglycemic drugs; Z79.85 Long-term (current) use of injectable non-insulin antidiabetic drugs; Z79.899 Other long term (current) drug therapy
CPT/HCPCS: 36415; 36573; 80053; 80202; 82565; 83605; 85025; 85027; 85652; 86140; 87040; 87070; 87075; 87077; 87186; 87205; 96361; 96365; 96366; 96367; 96368; 96375; 96376; 99285

== ENCOUNTER 2024-01-31 11:46 | Day surgery (SDC) | payer MEDICARE ==
[2024-01-31 12:18] VITALS: BP 112/64; PULSE 84; RESP 18; TEMP 98.6
--- NOTE | 2024-01-31 15:58 | P.OP ---
Date of Procedure: 01/31/24 Description of Procedure: Preoperative Diagnosis: Nonfunctional PICC line Gangrene right great toe s/p amputation Need for retirement antibiotics Postoperative Diagnosis: Same Procedure(s) Performed: Exchange of left basilic vein PICC placement under fluoroscopic guidance Anesthesia: local Surgeon: Deysi Estimated Blood Loss (ml): 2 Pathology: none sent Disposition: Discharge Description of Procedure: After written and informed consent was obtained the patient and risks, benefits and competitions were described the patient was brought to the Robotic Machine Operator and laid in a supine position with his left arm outstretched on an armboard. The area of the left arm was prepped and draped in usual sterile fashion. Timeout was performed in normal fashion. Utilizing the previous catheter, a long wire was inserted. The old catheter was removed. Measurements were made and catheter was cut to size at 45 cm and bareback through the skin, the catheter was placed over the wire. There with good positioning was visualized under fluoroscopy. The catheter was pulled and flushed easily. It was then secured in place in normal fashion. Patient tolerated the procedure well was sent back to recovery
--- NOTE | 2024-01-31 16:09 | IR ---
PICC Insertion: EXAMINATION TYPE: IR cvc insert >=5 years Intraoperative/procedural fluoroscopic services were provid ed. CLINICAL INDICATION:Male, 63 years old with history of ABX, 47cm, left basilic vein, 0.4min fluoro, 1 .70Zuum4; , [facility] Total fluoroscopy time is 0.4 min. DAP: 1.17 Gycm2 Please see the operative/procedural note for further details.
== END 2024-01-31 14:30 | disposition home or self-care (01) ==
LOC: CATHCVL 11:46
PROVIDERS: ATTEND Surgery
DX: I96 Gangrene, not elsewhere classified (principal); Z79.2 Long term (current) use of antibiotics; Z89.411 Acquired absence of right great toe
CPT/HCPCS: 36573; C1751; C1769 ×2